=== PATIENT | male | born 1990 | race American Indian/Alaskan Native ===

== ENCOUNTER 2019-08-26 06:04 | Emergency (ER) | payer MEDICAID, OTHER ==
[2019-08-26 06:12] VITALS: BP 156/81
[2019-08-26] MEDS ORDERED: Albuterol/Ipratropium 3.0-0.5 MG/3 ML Neb Soln NEB ONE (06:15)
[2019-08-26] MEDS ORDERED: methylPREDNISolone Sodium Succinate 125 MG/2 ML SDV IVPUSH ONE (06:33)
[2019-08-26 06:38] VITALS: PULSE 90
--- NOTE | 2019-08-26 06:50 | EDM.PDOC ---
<Bridget Guerra - Last Filed: 08/26/19 06:47> ED HPI GENERAL MEDICAL PROBLEM - General Chief Complaint: Respiratory Problem Stated Complaint: SOB, COUGH FOR A FEW DAYS Time Seen by Provider: 08/26/19 06:10 Source of Information: Reports: Patient History Limitations: Reports: No Limitations - History of Present Illness INITIAL COMMENTS - FREE TEXT/NARRATIVE: ED with c/o productive cough, SOB and sore throat past 3 days. Denies asthma hx. Smoker. Some fever. Generalized Pain Score (Numeric/FACES): 5 - Related Data Allergies Allergy/AdvReac Type Severity Reaction Status Date / Time No Known Allergies Allergy Verified 08/26/19 06:13 Home Meds: Home Meds . [No Known Home Meds] 01/17/14 [History] Past Medical History - Past Health History Medical/Surgical History: Denies Medical/Surgical History Social & Family History - Family History Family Medical History: Noncontributory - Tobacco Use Smoking Status *Q: Current Every Day Smoker Years of Tobacco use: 8 Packs/Tins Daily: 0.5 - Caffeine Use Caffeine Use: Reports: Tea - Recreational Drug Use Recreational Drug Use: No ED ROS GENERAL - Review of Systems Review Of Systems: Comprehensive ROS is negative, except as noted in HPI. ED EXAM, GENERAL - Physical Exam Exam: See Below Exam Limited By: Language Barrier General Appearance: Alert, Mild Distress Eye Exam: Bilateral Eye: PERRL Ears: Normal External Exam, Hearing Grossly Normal Nose: Normal Inspection Throat/Mouth: Inflammation Head: Atraumatic, Normocephalic. No: Sinus Tenderness Neck: Normal Inspection Respiratory/Chest: Decreased Breath Sounds, Wheezing (bilateral throughout) Cardiovascular: Normal Peripheral Pulses, Regular Rate, Rhythm GI/Abdominal: Normal Bowel Sounds Back Exam: Normal Inspection Extremities: Normal Inspection Psychiatric: Flat Affect Skin Exam: Warm, Dry, Intact, Normal Color Course - Vital Signs Last Recorded V/S: Last Vital Signs Temp 37.8 C 08/26/19 06:06 Pulse 90 08/26/19 06:36 Resp 22 H 08/26/19 06:06 BP 156/81 H 08/26/19 06:06 Pulse Ox 90 L 08/26/19 06:19 - Orders/Labs/Meds Orders: Active Orders 24 hr Category Date Time Status RT Aerosol Therapy [RC] ASDIRECTED Care 08/26/19 06:15 Active CULTURE STREP A CONFIRMATION [RM] Stat Lab 08/26/19 06:10 Results STREP SCRN A RAPID W CULT CONF [RM] Stat Lab 08/26/19 06:10 Results Labs: Laboratory Tests 08/26/19 08/26/19 08/26/19 Range/Units 06:36 06:36 06:36 WBC 11.6 H (5.0-10.0) 10^3/uL RBC 5.22 (4.6-6.2) 10^6/uL Hgb 16.4 (14.0-18.0) g/dL Hct 47.1 (40.0-54.0) % MCV 90.2 (80-100) fL MCH 31.4 (27.0-34.0) pg MCHC 34.8 (33.0-35.0) g/dL Plt Count 176 (150-450) 10^3/uL Neut % (Auto) 56.5 (42.2-75.2) % Lymph % (Auto) 24.4 (20.5-50.1) % [place] % (Auto) 9.3 H (2-8) % Eos % (Auto) 9.4 H (1.0-3.0) % Baso % (Auto) 0.4 (0.0-1.0) % Sodium 138 (135-145) mmol/L Potassium 3.7 (3.6-5.0) mmol/L Chloride 105 (101-111) mmol/L Carbon Dioxide 22.0 (21.0-31.0) mmol/L Anion Gap 14.7 BUN 13 (7-18) mg/dL Creatinine 0.9 (0.6-1.3) mg/dL Est Cr Clr Drug Dosing 132.47 mL/min Estimated GFR (MDRD) > 60 BUN/Creatinine Ratio 14.44 Glucose 159 H (74-105) mg/dL Lactic Acid 1.4 (0.5-2.2) mmol/L Calcium 8.6 (8.4-10.2) mg/dl Total Bilirubin 1.0 (0.2-1.0) mg/dL AST 28 (10-42) IU/L ALT 31 (10-60) IU/L Alkaline Phosphatase 64 (42-121) IU/L Total Protein 8.2 (6.7-8.2) g/dl Albumin 4.1 (3.2-5.5) g/dl Globulin 4.1 Albumin/Globulin Ratio 1.00 Meds: Medications Discontinued Medications Generic Name Dose Route Start Last Admin Trade Name Vanessa PRN Reason Stop Dose Admin Albuterol/Ipratropium 3 ml 08/26/19 06:15 08/26/19 06:35 Duoneb 3.0-0.5 Mg/3 Ml NEB 08/26/19 06:16 3 ml ONETIME ONE Administration Ceftriaxone Sodium 1 gm/ 50 mls @ 50 mls/hr 08/26/19 07:53 08/26/19 08:11 Sodium Chloride IV 08/26/19 08:52 50 mls/hr ONETIME ONE Administration Methylprednisolone Sodium Succinate 125 mg 08/26/19 06:33 08/26/19 06:38 Solu-Medrol IVPUSH 08/26/19 06:34 125 mg ONETIME ONE Administration Departure - Departure Disposition: Home, Self-Care 01 Clinical Impression: Bronchitis - Discharge Information Instructions: Upper Respiratory Infection, Adult, [id number] Forms: ED Department Discharge Care Plan Goals: The patient was advised of the examination, lab and x-ray results during the visit. The patient was given an nebulizer treatment, IV steroids and IV antibiotics while in the ED. The patient was discharged with prescriptions for 1 ) Azithromycin (250 mg) #6 to take 2 by mouth today and 1 by mouth daily for for the next 4 days and 2) Prednisone (20 mg) #10 to take 2 by mouth daily ( starting tomorrow) with food. If the patient has any additional symptoms or concerns, the patient should either return to the emergency department or visit his primary care facility. Sepsis Event Note - Evaluation Sepsis Screening Result: No Definite Risk - Focused Exam Vital Signs: Vital Signs Temp Pulse Resp BP Pulse Ox 08/26/19 06:36 90 08/26/19 06:19 90 L 08/26/19 06:06 37.8 C 97 22 H 156/81 H 89 L Date Exam was Performed: 08/26/19 Time Exam was Performed: 06:47 <Haja Ríos - Last Filed: 08/26/19 09:20> Departure - Departure Time of Disposition: 09:14 Condition: Fair - Discharge Information *PRESCRIPTION DRUG MONITORING PROGRAM REVIEWED*: Not Applicable *COPY OF PRESCRIPTION DRUG MONITORING REPORT IN PATIENT NADIA: Not Applicable Sepsis Event Note - Focused Exam Date Exam was Performed: 08/26/19 Time Exam was Performed: 09:14
[2019-08-26 07:11] LABS: ANION GAP 14.7; CHLORIDE,CL 105 mmol/L (101-111); SODIUM,NA 138 mmol/L (135-145)
[2019-08-26] MEDS ORDERED: cefTRIAXone 1 GM in Sodium Chloride 0.9% 50 ML IV ONE (07:53)
== END 2019-08-26 09:30 | disposition home or self-care (01) ==
LOC: DL.ED 06:04
DX: J40 Bronchitis, not specified as acute or chronic (principal); F17.210 Nicotine dependence, cigarettes, uncomplicated
CPT/HCPCS: 36415; 71046; 80053; 83605; 85025; 87081; 87430; 87804; 96365; 96375; 99285; J0696; J2930; J7050; J7620-GY

== ENCOUNTER 2019-08-31 14:09 | Inpatient (IN) | payer MEDICAID, OTHER ==
[2019-08-31] MEDS ORDERED: methylPREDNISolone Sodium Succinate 125 MG/2 ML SDV IVPUSH ONE (14:50)
[2019-08-31] MEDS ORDERED: Albuterol/Ipratropium 3.0-0.5 MG/3 ML Neb Soln NEB ONE ×2 (14:50→17:01)
[2019-08-31] MEDS ORDERED: Albuterol/Ipratropium 3.0-0.5 MG/3 ML Neb Soln ONE (14:52)
[2019-08-31] MEDS: Sodium Chloride 0.9% 10 ML Syringe FLUSH PRN (15:05)
--- NOTE | 2019-08-31 15:13 | CR ---
EXAMINATION: Chest 2V SEX: Male AGE: 28 years CLINICAL HISTORY: 28-year-old male complaining of cough, dyspnea, hypoxia, fever. INTERPRETATION: 1. *Patchy new lingular atelectasis and/or developing infiltrate when compared to 26 August 2019 exam. 2. Peribronchial "cuffing" and shaggy accentuation perihilar lung markings. 3. Normal cardiac silhouette without alveolar edema or dependent effusion. 4. No lung mass, hilar lymphadenopathy or other focal lobar consolidation. CONCLUSION: Lingular pneumonia.
[2019-08-31] MEDS ORDERED: Albuterol 0.083% 2.5 MG/3 ML Neb Soln NEB ONE (15:18)
[2019-08-31] MEDS ORDERED: Albuterol 0.083% 2.5 MG/3 ML Neb Soln ONE (15:19)
[2019-08-31 15:40] LABS: ANION GAP 17.9; CHLORIDE,CL 102 mmol/L (101-111); SODIUM,NA 136 mmol/L (135-145)
[2019-08-31] MEDS ORDERED: Azithromycin 500 MG in Sodium Chloride 0.9% 250 ML IV ONE (15:44)
[2019-08-31 17:03] LABS: BASE EXCESS ARTERIAL -2 mmol/L ((-2)-(+3)); BICARBONATE,ARTERIAL 22.6 mmol/L (22-26); O2 DELIVERY DEVICE NASAL CANNULA; O2 SATURATION ARTERIAL 90 % (95-100); PCO2 ARTERIAL 40 mmHg (35-45); PO2 ARTERIAL 61 mmHg (70-100)
[2019-08-31 17:07] LABS: ALLEN TEST LB; O2 FLOW RATE 11
[2019-08-31] MEDS ORDERED: Albuterol 0.083% 2.5 MG/3 ML Neb Soln NEB PRN ×2 (17:42→18:06)
[2019-08-31] MEDS ORDERED: Ondansetron 4 MG/2 ML SDV IVPUSH PRN ×2 (17:42→18:06)
[2019-08-31] MEDS ORDERED: Acetaminophen 325 MG Tab PO PRN ×2 (17:42→18:06)
[2019-08-31] MEDS ORDERED: Albuterol/Ipratropium 3.0-0.5 MG/3 ML Neb Soln NEB SCH (17:45)
[2019-08-31] MEDS ORDERED: cefTRIAXone 2 GM in Sodium Chloride 0.9% 100 ML IV SCH (17:45)
[2019-08-31] MEDS ORDERED: Sodium Chloride 0.9% 1,000 ML IV SCH (17:45)
--- NOTE | 2019-08-31 17:47 | EDM.PDOC ---
Scribed by Alivia Coronado 08/31/19 1610 for Raul Nolasco MD ED HPI GENERAL MEDICAL PROBLEM - General Chief Complaint: Respiratory Problem Stated Complaint: cough Time Seen by Provider: 08/31/19 14:47 Source of Information: Reports: Patient, RN, RN Notes Reviewed History Limitations: Reports: No Limitations - History of Present Illness INITIAL COMMENTS - FREE TEXT/NARRATIVE: Patient presents to ER with shortness of breath, cough and fever x1 week. Patient was here on 08/26/19 and diagnosed with bronchitis but did not fill his prescriptions. He states he was better for 2 days but for the last 2 days he has been very short of breath. Denies history of asthma. Admits to 10 year history of smoking cigarettes. Onset Date: 08/24/19 Duration: Getting Worse Location: Reports: Chest Quality: Reports: Ache Severity: Moderate Improves with: Reports: None Worsens with: Reports: None Associated Symptoms: Reports: No Other Symptoms - Related Data Allergies Allergy/AdvReac Type Severity Reaction Status Date / Time No Known Allergies Allergy Verified 08/31/19 14:59 Home Meds: Home Meds . [No Known Home Meds] 01/17/14 [History] Past Medical History - Past Health History Medical/Surgical History: Denies Medical/Surgical History Social & Family History - Family History Family Medical History: Noncontributory - Caffeine Use Caffeine Use: Reports: Tea - Living Situation & Occupation Living situation: Reports: with Family ED ROS GENERAL - Review of Systems Review Of Systems: Comprehensive ROS is negative, except as noted in HPI. ED EXAM, GENERAL - Physical Exam Exam: See Below Exam Limited By: No Limitations General Appearance: Alert, WD/WN, Mild Distress Eye Exam: Bilateral Eye: EOMI, Normal Inspection, PERRL Ears: Normal External Exam, Normal Canal, Hearing Grossly Normal, Normal TMs Nose: No Blood, Nasal Drainage, Other (mild naal congestion) Throat/Mouth: Normal Inspection, Normal Lips, Normal Teeth, Normal Gums, Normal Oropharynx, Normal Voice, No Airway Compromise Head: Atraumatic, Normocephalic Neck: Normal Inspection, Supple, Non-Tender, Full Range of Motion. No: Lymphadenopathy (L), Lymphadenopathy (R) Respiratory/Chest: Chest Non-Tender, Decreased Breath Sounds, Crackles, Rhonchi (mild scattered bilateral bases, clears with cough. ), Wheezing. No: Stridor Cardiovascular: Regular Rate, Rhythm, No Edema, No Murmur, Tachycardia GI/Abdominal: Normal Bowel Sounds, Soft, Non-Tender, No Organomegaly, No Distention, No Abnormal Bruit, No Mass Back Exam: Normal Inspection Extremities: Normal Inspection, Normal Range of Motion, Non-Tender, Normal Capillary Refill, No Pedal Edema Neurological: Alert, Oriented, CN II-XII Intact, Normal Cognition, Normal Gait, No Motor/Sensory Deficits Psychiatric: Normal Affect, Anxious Skin Exam: Warm, Dry, Intact, Normal Color, No Rash Course - Vital Signs Last Recorded V/S: Last Vital Signs Temp 98 F 08/31/19 14:12 Pulse 118 H 08/31/19 17:14 Resp 20 08/31/19 14:12 BP 140/91 H 08/31/19 14:12 Pulse Ox 88 L 08/31/19 14:12 - Orders/Labs/Meds Orders: Active Orders 24 hr Category Date Time Status Admission Diagnosis [ADT] Routine ADT 08/31/19 17:42 Ordered Admission Status [Patient Status] [ADT] Routine ADT 08/31/19 17:42 Active Peripheral IV Care [RC] . DIRECTED Care 08/31/19 14:48 Active RT Aerosol Therapy [RC] ASDIRECTED Care 08/31/19 14:51 Active RT Aerosol Therapy [RC] ASDIRECTED Care 08/31/19 15:18 Active RT Aerosol Therapy [RC] ASDIRECTED Care 08/31/19 17:01 Active CULTURE BLOOD [BC] Stat Lab 08/31/19 15:00 Received CULTURE BLOOD [BC] Stat Lab 08/31/19 15:08 Received Sodium Chloride 0.9% [Saline Flush] Med 08/31/19 14:47 Active 10 ml FLUSH ASDIRECTED PRN Blood Culture x2 Reflex Set [OM.PC] Stat Oth 08/31/19 14:47 Ordered Peripheral IV Insertion Adult [OM.PC] Stat Oth 08/31/19 14:47 Ordered Medication Orders Sodium Chloride (Saline Flush) 10 ml FLUSH ASDIRECTED PRN PRN Reason: Keep Vein Open Last Admin: 08/31/19 15:05 Dose: 10 ml Labs: Laboratory Tests 08/31/19 08/31/19 08/31/19 Range/Units 14:54 14:54 15:00 WBC 16.0 H (5.0-10.0) 10^3/uL RBC 5.60 (4.6-6.2) 10^6/uL Hgb 17.7 (14.0-18.0) g/dL Hct 49.1 (40.0-54.0) % MCV 87.7 (80-100) fL MCH 31.6 (27.0-34.0) pg MCHC 36.0 H (33.0-35.0) g/dL Plt Count 206 (150-450) 10^3/uL Neut % (Auto) 72.1 (42.2-75.2) % Lymph % (Auto) 12.3 L (20.5-50.1) % [place] % (Auto) 7.9 (2-8) % Eos % (Auto) 7.5 H (1.0-3.0) % Baso % (Auto) 0.2 (0.0-1.0) % D-Dimer, Quantitative (0-400) ng/mL ABG pH (7.35-7.45) ABG pCO2 (35-45) mmHg ABG pO2 (70-100) mmHg ABG HCO3 (22-26) mmol/L ABG O2 Saturation (95-100) % ABG Base Excess ((-2)-(+3)) mmol/L Kenji Test O2 Delivery Device Oxygen Flow Rate Sodium (135-145) mmol/L Potassium (3.6-5.0) mmol/L Chloride (101-111) mmol/L Carbon Dioxide (21.0-31.0) mmol/L Anion Gap BUN (7-18) mg/dL Creatinine (0.6-1.3) mg/dL Est Cr Clr Drug Dosing mL/min Estimated GFR (MDRD) BUN/Creatinine Ratio Glucose (74-105) mg/dL Lactic Acid (0.5-2.0) mmol/L Calcium (8.4-10.2) mg/dl Total Bilirubin (0.2-1.0) mg/dL AST (10-42) IU/L ALT (10-60) IU/L Alkaline Phosphatase (42-121) IU/L Total Protein (6.7-8.2) g/dl Albumin (3.2-5.5) g/dl Globulin Albumin/Globulin Ratio Urine Color Yellow (YELLOW) Urine Appearance Clear (CLEAR) Urine pH 6.0 (5.0-9.0) Ur Specific [place] 1.015 (1.005-1.030) Urine Protein Negative (NEGATIVE) Urine Glucose (UA) Negative (NEGATIVE) Urine Ketones Negative (NEGATIVE) Urine Occult Blood Negative (NEGATIVE) Urine Nitrite Negative (NEGATIVE) Urine Bilirubin Negative (NEGATIVE) Urine Urobilinogen 0.2 (0.2-1.0) mg/dL Ur Leukocyte Esterase Negative (NEGATIVE) Urine Opiates Screen Negative (NEGATIVE) Ur Oxycodone Screen Negative (NEGATIVE) Urine Methadone Screen Negative (NEGATIVE) Ur Barbiturates Screen Negative (NEGATIVE) U Tricyclic Antidepress Negative (NEGATIVE) Ur Phencyclidine Scrn Negative (NEGATIVE) Ur Amphetamine Screen Negative (NEGATIVE) U Methamphetamines Scrn Negative (NEGATIVE) Urine MDMA Screen Negative (NEGATIVE) U Benzodiazepines Scrn Negative (NEGATIVE) Urine Cocaine Screen Negative (NEGATIVE) U Marijuana (THC) Screen Negative (NEGATIVE) 08/31/19 08/31/19 08/31/19 Range/Units 15:00 15:00 15:00 WBC (5.0-10.0) 10^3/uL RBC (4.6-6.2) 10^6/uL Hgb (14.0-18.0) g/dL Hct (40.0-54.0) % MCV (80-100) fL MCH (27.0-34.0) pg MCHC (33.0-35.0) g/dL Plt Count (150-450) 10^3/uL Neut % (Auto) (42.2-75.2) % Lymph % (Auto) (20.5-50.1) % [place] % (Auto) (2-8) % Eos % (Auto) (1.0-3.0) % Baso % (Auto) (0.0-1.0) % D-Dimer, Quantitative < 100 (0-400) ng/mL ABG pH (7.35-7.45) ABG pCO2 (35-45) mmHg ABG pO2 (70-100) mmHg ABG HCO3 (22-26) mmol/L ABG O2 Saturation (95-100) % ABG Base Excess ((-2)-(+3)) mmol/L Kenji Test O2 Delivery Device Oxygen Flow Rate Sodium 136 (135-145) mmol/L Potassium 3.9 (3.6-5.0) mmol/L Chloride 102 (101-111) mmol/L Carbon Dioxide 20.0 L (21.0-31.0) mmol/L Anion Gap 17.9 BUN 11 (7-18) mg/dL Creatinine 0.9 (0.6-1.3) mg/dL Est Cr Clr Drug Dosing 132.47 mL/min Estimated GFR (MDRD) > 60 BUN/Creatinine Ratio 12.22 Glucose 112 H (74-105) mg/dL Lactic Acid 1.2 (0.5-2.0) mmol/L Calcium 8.9 (8.4-10.2) mg/dl Total Bilirubin 1.6 H (0.2-1.0) mg/dL AST 37 (10-42) IU/L ALT 37 (10-60) IU/L Alkaline Phosphatase 62 (42-121) IU/L Total Protein 8.8 H (6.7-8.2) g/dl Albumin 4.4 (3.2-5.5) g/dl Globulin 4.4 Albumin/Globulin Ratio 1.00 Urine Color (YELLOW) Urine Appearance (CLEAR) Urine pH (5.0-9.0) Ur Specific [place] (1.005-1.030) Urine Protein (NEGATIVE) Urine Glucose (UA) (NEGATIVE) Urine Ketones (NEGATIVE) Urine Occult Blood (NEGATIVE) Urine Nitrite (NEGATIVE) Urine Bilirubin (NEGATIVE) Urine Urobilinogen (0.2-1.0) mg/dL Ur Leukocyte Esterase (NEGATIVE) Urine Opiates Screen (NEGATIVE) Ur Oxycodone Screen (NEGATIVE) Urine Methadone Screen (NEGATIVE) Ur Barbiturates Screen (NEGATIVE) U Tricyclic Antidepress (NEGATIVE) Ur Phencyclidine Scrn (NEGATIVE) Ur Amphetamine Screen (NEGATIVE) U Methamphetamines Scrn (NEGATIVE) Urine MDMA Screen (NEGATIVE) U Benzodiazepines Scrn (NEGATIVE) Urine Cocaine Screen (NEGATIVE) U Marijuana (THC) Screen (NEGATIVE) 08/31/19 Range/Units 17:00 WBC (5.0-10.0) 10^3/uL RBC (4.6-6.2) 10^6/uL Hgb (14.0-18.0) g/dL Hct (40.0-54.0) % MCV (80-100) fL MCH (27.0-34.0) pg MCHC (33.0-35.0) g/dL Plt Count (150-450) 10^3/uL Neut % (Auto) (42.2-75.2) % Lymph % (Auto) (20.5-50.1) % [place] % (Auto) (2-8) % Eos % (Auto) (1.0-3.0) % Baso % (Auto) (0.0-1.0) % D-Dimer, Quantitative (0-400) ng/mL ABG pH 7.37 (7.35-7.45) ABG pCO2 40 (35-45) mmHg ABG pO2 61 L (70-100) mmHg ABG HCO3 22.6 (22-26) mmol/L ABG O2 Saturation 90 L (95-100) % ABG Base Excess -2 ((-2)-(+3)) mmol/L Kenji Test Lb O2 Delivery Device Nasal cannula Oxygen Flow Rate 11 Sodium (135-145) mmol/L Potassium (3.6-5.0) mmol/L Chloride (101-111) mmol/L Carbon Dioxide (21.0-31.0) mmol/L Anion Gap BUN (7-18) mg/dL Creatinine (0.6-1.3) mg/dL Est Cr Clr Drug Dosing mL/min Estimated GFR (MDRD) BUN/Creatinine Ratio Glucose (74-105) mg/dL Lactic Acid (0.5-2.0) mmol/L Calcium (8.4-10.2) mg/dl Total Bilirubin (0.2-1.0) mg/dL AST (10-42) IU/L ALT (10-60) IU/L Alkaline Phosphatase (42-121) IU/L Total Protein (6.7-8.2) g/dl Albumin (3.2-5.5) g/dl Globulin Albumin/Globulin Ratio Urine Color (YELLOW) Urine Appearance (CLEAR) Urine pH (5.0-9.0) Ur Specific [place] (1.005-1.030) Urine Protein (NEGATIVE) Urine Glucose (UA) (NEGATIVE) Urine Ketones (NEGATIVE) Urine Occult Blood (NEGATIVE) Urine Nitrite (NEGATIVE) Urine Bilirubin (NEGATIVE) Urine Urobilinogen (0.2-1.0) mg/dL Ur Leukocyte Esterase (NEGATIVE) Urine Opiates Screen (NEGATIVE) Ur Oxycodone Screen (NEGATIVE) Urine Methadone Screen (NEGATIVE) Ur Barbiturates Screen (NEGATIVE) U Tricyclic Antidepress (NEGATIVE) Ur Phencyclidine Scrn (NEGATIVE) Ur Amphetamine Screen (NEGATIVE) U Methamphetamines Scrn (NEGATIVE) Urine MDMA Screen (NEGATIVE) U Benzodiazepines Scrn (NEGATIVE) Urine Cocaine Screen (NEGATIVE) U Marijuana (THC) Screen (NEGATIVE) Influenza A and B: Negative. Meds: Medications Generic Name Dose Route Start Last Admin Trade Name Freq PRN Reason Stop Dose Admin Sodium Chloride 10 ml 08/31/19 14:47 08/31/19 15:05 Saline Flush FLUSH 10 ml ASDIRECTED PRN Administration Keep Vein Open Discontinued Medications Generic Name Dose Route Start Last Admin Trade Name Freq PRN Reason Stop Dose Admin Albuterol 2.5 mg 08/31/19 15:18 08/31/19 15:23 Proventil Neb Soln NEB 08/31/19 15:19 2.5 mg ONETIME ONE Administration Albuterol Confirm 08/31/19 15:19 08/31/19 15:24 Proventil Neb Soln Administered 08/31/19 15:20 2.5 mg Dose Administration 2.5 mg .ROUTE .STK-MED ONE Albuterol/Ipratropium 3 ml 08/31/19 14:50 08/31/19 15:12 Duoneb 3.0-0.5 Mg/3 Ml NEB 08/31/19 14:51 3 ml ONETIME ONE Administration Albuterol/Ipratropium Confirm 08/31/19 14:52 08/31/19 15:10 Duoneb 3.0-0.5 Mg/3 Ml Administered 08/31/19 14:53 Not Given Dose 3 ml .ROUTE .STK-MED ONE Albuterol/Ipratropium 3 ml 08/31/19 17:01 08/31/19 17:14 Duoneb 3.0-0.5 Mg/3 Ml NEB 08/31/19 17:02 3 ml ONETIME ONE Administration Azithromycin 500 mg/ Sodium 250 mls @ 250 mls/hr 08/31/19 15:44 08/31/19 16: 32 Chloride IV 08/31/19 16:43 250 mls/hr ONETIME ONE Administration Ceftriaxone Sodium 2,000 mg/ 100 mls @ 200 mls/hr 08/31/19 15:43 08/31/19 16: 02 Sodium Chloride IV 08/31/19 16:12 200 mls/hr ONETIME ONE Administration Methylprednisolone Sodium Succinate 125 mg 08/31/19 14:50 08/31/19 15:05 Solu-Medrol IVPUSH 08/31/19 14:51 125 mg ONETIME ONE Administration - Radiology Interpretation Free Text/Narrative:: Chest x-ray: Lingular pneumonia. See rad report. Departure - Departure Time of Disposition: 16:09 (admitted to Dr. Gonsales) Disposition: Admitted As Inpatient 68 Condition: Fair Clinical Impression: Hypoxia Pneumonia Qualifiers: Pneumonia type: due to unspecified organism Laterality: left Lung location: unspecified part of lung Qualified Code(s): J18.9 - Pneumonia, unspecified organism Reactive airway disease with acute exacerbation Qualifiers: Asthma severity: severe Asthma persistence: persistent Qualified Code(s): J45.51 - Severe persistent asthma with (acute) exacerbation - Discharge Information *PRESCRIPTION DRUG MONITORING PROGRAM REVIEWED*: No *COPY OF PRESCRIPTION DRUG MONITORING REPORT IN PATIENT NADIA: No Forms: ED Department Discharge Sepsis Event Note - Focused Exam Vital Signs: Vital Signs Temp Pulse Resp BP Pulse Ox 08/31/19 17:14 118 H 08/31/19 15:12 105 H 08/31/19 14:12 98 F 111 H 20 140/91 H 88 L Date Exam was Performed: 08/31/19 Time Exam was Performed: 17:47 - My Orders Last 24 Hours: My Active Orders 08/31/19 14:47 Sodium Chloride 0.9% [Saline Flush] 10 ml FLUSH ASDIRECTED PRN Blood Culture x2 Reflex Set [OM.PC] Stat Peripheral IV Insertion Adult [OM.PC] Stat 08/31/19 14:48 Peripheral IV Care [RC] . DIRECTED 08/31/19 14:51 RT Aerosol Therapy [RC] ASDIRECTED 08/31/19 15:00 CULTURE BLOOD [BC] Stat 08/31/19 15:08 CULTURE BLOOD [BC] Stat 08/31/19 15:18 RT Aerosol Therapy [RC] ASDIRECTED 08/31/19 17:01 RT Aerosol Therapy [RC] ASDIRECTED 08/31/19 17:42 Admission Diagnosis [ADT] Routine Admission Status [Patient Status] [ADT] Routine - Assessment/Plan Last 24 Hours: My Active Orders 08/31/19 14:47 Sodium Chloride 0.9% [Saline Flush] 10 ml FLUSH ASDIRECTED PRN Blood Culture x2 Reflex Set [OM.PC] Stat Peripheral IV Insertion Adult [OM.PC] Stat 08/31/19 14:48 Peripheral IV Care [RC] . DIRECTED 08/31/19 14:51 RT Aerosol Therapy [RC] ASDIRECTED 08/31/19 15:00 CULTURE BLOOD [BC] Stat 08/31/19 15:08 CULTURE BLOOD [BC] Stat 08/31/19 15:18 RT Aerosol Therapy [RC] ASDIRECTED 08/31/19 17:01 RT Aerosol Therapy [RC] ASDIRECTED 08/31/19 17:42 Admission Diagnosis [ADT] Routine Admission Status [Patient Status] [ADT] Routine I have read and agree with the documentation that has been completed regarding this visit. By signing this record, I attest that the documentation was completed in my physical presence and is an accurate record of the encounter.
--- NOTE | 2019-08-31 17:52 | PCM.HP ---
H&P History of Present Illness - General Date of Service: 08/31/19 Admit Problem/Dx: Admission Diagnosis/Problem Admission Diagnosis/Problem Sepsis Source of Information: Patient - History of Present Illness Initial Comments - Free Text/Narative: The patient is a 28-year-old man with no significant past medical history. He started coughing about 5 days ago. Initially was mild but has gradually worsened over time. He was expectorating yellowish sputum. Also started having associated shortness of breath and wheezing. Symptoms has continued to worsen prompting him to come to the emergency room. In the emergency room patient was noted to be hypoxic with saturation in the 80s. Was placed on supplemental oxygen. Chest x-ray was obtained and he suggested left lower lobe infiltrate. He has had associated fever chills or rigors. Denies nausea vomiting or diarrhea. - Related Data Allergies/Adverse Reactions: Allergies Allergy/AdvReac Type Severity Reaction Status Date / Time No Known Allergies Allergy Verified 08/31/19 14:59 Home Medications: Home Meds . [No Known Home Meds] 01/17/14 [History] Past Medical History - Past Health History Medical/Surgical History: Denies Medical/Surgical History Social & Family History - Family History Family Medical History: Noncontributory - Tobacco Use Smoking Status *Q: Current Every Day Smoker Years of Tobacco use: 10 Packs/Tins Daily: 0.5 - Caffeine Use Caffeine Use: Reports: Tea - Recreational Drug Use Recreational Drug Use: No - Living Situation & Occupation Living situation: Reports: with Family H&P Review of Systems - Review of Systems: Review Of Systems: See Below General: Reports: Fever, Chills, Malaise, Weakness HEENT: Reports: Rhinitis Pulmonary: Reports: Shortness of Breath, Wheezing, Cough, Sputum Cardiovascular: Reports: No Symptoms Gastrointestinal: Reports: No Symptoms Genitourinary: Reports: No Symptoms Musculoskeletal: Reports: No Symptoms Skin: Reports: No Symptoms Psychiatric: Reports: No Symptoms Exam - Exam Exam: See Below - Vital Signs Vital Signs: Last Vital Signs Temp 36.6 C 08/31/19 14:12 Pulse 118 H 08/31/19 17:14 Resp 20 08/31/19 14:12 BP 140/91 H 08/31/19 14:12 Pulse Ox 88 L 08/31/19 14:12 Weight: 108.046 kg - Exam Quality Assessment: Supplemental Oxygen General: Alert, Oriented, Cooperative, Mild Distress Neck: Supple, Trachea Midline Lungs: Decreased Breath Sounds, Crackles, Rhonchi Cardiovascular: Regular Rate, Regular Rhythm GI/Abdominal Exam: Normal Bowel Sounds, Soft, Non-Tender, No Organomegaly, No Distention, No Abnormal Bruit, No Mass, Pelvis Stable Back Exam: Normal Inspection, Full Range of Motion, NT Extremities: Normal Inspection, Normal Range of Motion, Non-Tender, No Pedal Edema, Normal Capillary Refill - Patient Data Lab Results Last 24 hrs: Laboratory Results - last 24 hr 08/31/19 08/31/19 08/31/19 Range/Units 14:54 14:54 15:00 WBC 16.0 H (5.0-10.0) 10^3/uL RBC 5.60 (4.6-6.2) 10^6/uL Hgb 17.7 (14.0-18.0) g/dL Hct 49.1 (40.0-54.0) % MCV 87.7 (80-100) fL MCH 31.6 (27.0-34.0) pg MCHC 36.0 H (33.0-35.0) g/dL Plt Count 206 (150-450) 10^3/uL Neut % (Auto) 72.1 (42.2-75.2) % Lymph % (Auto) 12.3 L (20.5-50.1) % Citrus % (Auto) 7.9 (2-8) % Eos % (Auto) 7.5 H (1.0-3.0) % Baso % (Auto) 0.2 (0.0-1.0) % D-Dimer, Quantitative (0-400) ng/mL ABG pH (7.35-7.45) ABG pCO2 (35-45) mmHg ABG pO2 (70-100) mmHg ABG HCO3 (22-26) mmol/L ABG O2 Saturation (95-100) % ABG Base Excess ((-2)-(+3)) mmol/L Kenji Test O2 Delivery Device Oxygen Flow Rate Sodium (135-145) mmol/L Potassium (3.6-5.0) mmol/L Chloride (101-111) mmol/L Carbon Dioxide (21.0-31.0) mmol/L Anion Gap BUN (7-18) mg/dL Creatinine (0.6-1.3) mg/dL Est Cr Clr Drug Dosing mL/min Estimated GFR (MDRD) BUN/Creatinine Ratio Glucose (74-105) mg/dL Lactic Acid (0.5-2.0) mmol/L Calcium (8.4-10.2) mg/dl Total Bilirubin (0.2-1.0) mg/dL AST (10-42) IU/L ALT (10-60) IU/L Alkaline Phosphatase (42-121) IU/L Total Protein (6.7-8.2) g/dl Albumin (3.2-5.5) g/dl Globulin Albumin/Globulin Ratio Urine Color Yellow (YELLOW) Urine Appearance Clear (CLEAR) Urine pH 6.0 (5.0-9.0) Ur Specific [place] 1.015 (1.005-1.030) Urine Protein Negative (NEGATIVE) Urine Glucose (UA) Negative (NEGATIVE) Urine Ketones Negative (NEGATIVE) Urine Occult Blood Negative (NEGATIVE) Urine Nitrite Negative (NEGATIVE) Urine Bilirubin Negative (NEGATIVE) Urine Urobilinogen 0.2 (0.2-1.0) mg/dL Ur Leukocyte Esterase Negative (NEGATIVE) Urine Opiates Screen Negative (NEGATIVE) Ur Oxycodone Screen Negative (NEGATIVE) Urine Methadone Screen Negative (NEGATIVE) Ur Barbiturates Screen Negative (NEGATIVE) U Tricyclic Antidepress Negative (NEGATIVE) Ur Phencyclidine Scrn Negative (NEGATIVE) Ur Amphetamine Screen Negative (NEGATIVE) U Methamphetamines Scrn Negative (NEGATIVE) Urine MDMA Screen Negative (NEGATIVE) U Benzodiazepines Scrn Negative (NEGATIVE) Urine Cocaine Screen Negative (NEGATIVE) U Marijuana (THC) Screen Negative (NEGATIVE) 08/31/19 08/31/19 08/31/19 Range/Units 15:00 15:00 15:00 WBC (5.0-10.0) 10^3/uL RBC (4.6-6.2) 10^6/uL Hgb (14.0-18.0) g/dL Hct (40.0-54.0) % MCV (80-100) fL MCH (27.0-34.0) pg MCHC (33.0-35.0) g/dL Plt Count (150-450) 10^3/uL Neut % (Auto) (42.2-75.2) % Lymph % (Auto) (20.5-50.1) % Citrus % (Auto) (2-8) % Eos % (Auto) (1.0-3.0) % Baso % (Auto) (0.0-1.0) % D-Dimer, Quantitative < 100 (0-400) ng/mL ABG pH (7.35-7.45) ABG pCO2 (35-45) mmHg ABG pO2 (70-100) mmHg ABG HCO3 (22-26) mmol/L ABG O2 Saturation (95-100) % ABG Base Excess ((-2)-(+3)) mmol/L Kenji Test O2 Delivery Device Oxygen Flow Rate Sodium 136 (135-145) mmol/L Potassium 3.9 (3.6-5.0) mmol/L Chloride 102 (101-111) mmol/L Carbon Dioxide 20.0 L (21.0-31.0) mmol/L Anion Gap 17.9 BUN 11 (7-18) mg/dL Creatinine 0.9 (0.6-1.3) mg/dL Est Cr Clr Drug Dosing 132.47 mL/min Estimated GFR (MDRD) > 60 BUN/Creatinine Ratio 12.22 Glucose 112 H (74-105) mg/dL Lactic Acid 1.2 (0.5-2.0) mmol/L Calcium 8.9 (8.4-10.2) mg/dl Total Bilirubin 1.6 H (0.2-1.0) mg/dL AST 37 (10-42) IU/L ALT 37 (10-60) IU/L Alkaline Phosphatase 62 (42-121) IU/L Total Protein 8.8 H (6.7-8.2) g/dl Albumin 4.4 (3.2-5.5) g/dl Globulin 4.4 Albumin/Globulin Ratio 1.00 Urine Color (YELLOW) Urine Appearance (CLEAR) Urine pH (5.0-9.0) Ur Specific [place] (1.005-1.030) Urine Protein (NEGATIVE) Urine Glucose (UA) (NEGATIVE) Urine Ketones (NEGATIVE) Urine Occult Blood (NEGATIVE) Urine Nitrite (NEGATIVE) Urine Bilirubin (NEGATIVE) Urine Urobilinogen (0.2-1.0) mg/dL Ur Leukocyte Esterase (NEGATIVE) Urine Opiates Screen (NEGATIVE) Ur Oxycodone Screen (NEGATIVE) Urine Methadone Screen (NEGATIVE) Ur Barbiturates Screen (NEGATIVE) U Tricyclic Antidepress (NEGATIVE) Ur Phencyclidine Scrn (NEGATIVE) Ur Amphetamine Screen (NEGATIVE) U Methamphetamines Scrn (NEGATIVE) Urine MDMA Screen (NEGATIVE) U Benzodiazepines Scrn (NEGATIVE) Urine Cocaine Screen (NEGATIVE) U Marijuana (THC) Screen (NEGATIVE) 08/31/19 Range/Units 17:00 WBC (5.0-10.0) 10^3/uL RBC (4.6-6.2) 10^6/uL Hgb (14.0-18.0) g/dL Hct (40.0-54.0) % MCV (80-100) fL MCH (27.0-34.0) pg MCHC (33.0-35.0) g/dL Plt Count (150-450) 10^3/uL Neut % (Auto) (42.2-75.2) % Lymph % (Auto) (20.5-50.1) % Citrus % (Auto) (2-8) % Eos % (Auto) (1.0-3.0) % Baso % (Auto) (0.0-1.0) % D-Dimer, Quantitative (0-400) ng/mL ABG pH 7.37 (7.35-7.45) ABG pCO2 40 (35-45) mmHg ABG pO2 61 L (70-100) mmHg ABG HCO3 22.6 (22-26) mmol/L ABG O2 Saturation 90 L (95-100) % ABG Base Excess -2 ((-2)-(+3)) mmol/L Kenji Test Lb O2 Delivery Device Nasal cannula Oxygen Flow Rate 11 Sodium (135-145) mmol/L Potassium (3.6-5.0) mmol/L Chloride (101-111) mmol/L Carbon Dioxide (21.0-31.0) mmol/L Anion Gap BUN (7-18) mg/dL Creatinine (0.6-1.3) mg/dL Est Cr Clr Drug Dosing mL/min Estimated GFR (MDRD) BUN/Creatinine Ratio Glucose (74-105) mg/dL Lactic Acid (0.5-2.0) mmol/L Calcium (8.4-10.2) mg/dl Total Bilirubin (0.2-1.0) mg/dL AST (10-42) IU/L ALT (10-60) IU/L Alkaline Phosphatase (42-121) IU/L Total Protein (6.7-8.2) g/dl Albumin (3.2-5.5) g/dl Globulin Albumin/Globulin Ratio Urine Color (YELLOW) Urine Appearance (CLEAR) Urine pH (5.0-9.0) Ur Specific [place] (1.005-1.030) Urine Protein (NEGATIVE) Urine Glucose (UA) (NEGATIVE) Urine Ketones (NEGATIVE) Urine Occult Blood (NEGATIVE) Urine Nitrite (NEGATIVE) Urine Bilirubin (NEGATIVE) Urine Urobilinogen (0.2-1.0) mg/dL Ur Leukocyte Esterase (NEGATIVE) Urine Opiates Screen (NEGATIVE) Ur Oxycodone Screen (NEGATIVE) Urine Methadone Screen (NEGATIVE) Ur Barbiturates Screen (NEGATIVE) U Tricyclic Antidepress (NEGATIVE) Ur Phencyclidine Scrn (NEGATIVE) Ur Amphetamine Screen (NEGATIVE) U Methamphetamines Scrn (NEGATIVE) Urine MDMA Screen (NEGATIVE) U Benzodiazepines Scrn (NEGATIVE) Urine Cocaine Screen (NEGATIVE) U Marijuana (THC) Screen (NEGATIVE) Result Diagrams: 08/31/19 15:00 08/31/19 15:00 Héctor Results Last 24 hrs: Microbiology 08/31/19 14:36 Influenza Type A Antigen Screen - Final Nasal, Unspecified NEGATIVE INFLUENZA A VIRUS AG REFERENCE RANGE: NEGATIVE Influenza Type B Antigen Screen - Final NEGATIVE INFLUENZA B VIRUS AG REFERENCE RANGE: NEGATIVE Problem List Initiated/Reviewed/Updated: Yes Orders Last 24hrs: Active Orders 24 hr Category Date Time Status Admission Diagnosis [ADT] Routine ADT 08/31/19 17:42 Ordered Admission Status [Patient Status] [ADT] Routine ADT 08/31/19 17:42 Active Patient Status [ADT] Routine ADT 08/31/19 17:42 Ordered Cardiac Monitoring [RC] CONTINUOUS Care 08/31/19 17:43 Ordered Intake and Output [RC] QSHIFT Care 08/31/19 17:43 Ordered Oxygen Therapy [RC] PRN Care 08/31/19 17:42 Ordered Peripheral IV Care [RC] . DIRECTED Care 08/31/19 14:48 Active RT Aerosol Therapy [RC] ASDIRECTED Care 08/31/19 14:51 Active RT Aerosol Therapy [RC] ASDIRECTED Care 08/31/19 15:18 Active RT Aerosol Therapy [RC] ASDIRECTED Care 08/31/19 17:01 Active RT Aerosol Therapy [RC] ASDIRECTED Care 08/31/19 17:44 Ordered Up ad Xuan [RC] ASDIRECTED Care 08/31/19 17:42 Ordered VTE/DVT Education [RC] PER UNIT ROUTINE Care 08/31/19 17:42 Ordered Vital Signs [RC] Q4H Care 08/31/19 17:42 Ordered Regular Diet [DIET] Diet 08/31/19 Dinner Ordered BASIC METABOLIC PANEL,BMP [CHEM] AM Lab 09/01/19 05:11 Ordered CBC W/O DIFF,HEMOGRAM [HEME] AM Lab 09/01/19 05:11 Ordered CULTURE BLOOD [BC] Stat Lab 08/31/19 15:00 Received CULTURE BLOOD [BC] Stat Lab 08/31/19 15:08 Received CULTURE SPUTUM + SMEAR [RM] Stat Lab 08/31/19 17:42 Ordered HEPATIC FUNCTION PANEL,HFP [CHEM] Stat Lab 09/01/19 06:00 Ordered Acetaminophen [Tylenol] Med 08/31/19 17:42 Ordered 650 mg PO Q4H PRN Albuterol [Proventil Neb Soln] Med 08/31/19 17:42 Ordered 2.5 mg NEB Q2H PRN Albuterol/Ipratropium [DuoNeb 3.0-0.5 MG/3 ML] Med 08/31/19 17:45 Ordered 3 ml NEB Q4H Azithromycin [Zithromax] 500 mg Med 08/31/19 18:00 Ordered Sodium Chloride 0.9% [Normal Saline] 250 ml IV Q24H Enoxaparin [Lovenox] Med 09/01/19 09:00 Ordered 40 mg SUBCUT DAILY Ondansetron [Zofran] Med 08/31/19 17:42 Ordered 4 mg IVPUSH Q6H PRN Sodium Chloride 0.9% @ 125 MLS/HR (1000ml) Med 08/31/19 17:45 Ordered Sodium Chloride 0.9% [Normal Saline] 1,000 ml IV ASDIRECTED Sodium Chloride 0.9% [Saline Flush] Med 08/31/19 14:47 Active 10 ml FLUSH ASDIRECTED PRN cefTRIAXone [Rocephin] 2 gm Med 08/31/19 17:45 Ordered Sodium Chloride 0.9% [Normal Saline] 100 ml IV Q24H Blood Culture x2 Reflex Set [OM.PC] Stat Oth 08/31/19 14:47 Ordered Peripheral IV Insertion Adult [OM.PC] Stat Oth 08/31/19 14:47 Ordered Resuscitation Status Routine Resus Stat 08/31/19 17:42 Ordered Medication Orders Sodium Chloride (Saline Flush) 10 ml FLUSH ASDIRECTED PRN PRN Reason: Keep Vein Open Last Admin: 08/31/19 15:05 Dose: 10 ml Assessment/Plan Comment:: #. Acute hypoxemic respiratory failure This is secondary to pneumonia That may be a component of bronchospasm #. Community-acquired pneumonia Chest x-ray showed left lower lobe infiltrate Patient has been coughing #. Sepsis The patient is tachycardic and has leukocytosis white cell count of 16,000 #. Tobacco use disorder Patient smokes about half a pack of cigarettes a day #. Elevated bilirubin Likely due to sepsis Plan: Admit patient to medical floor Send sputum for Gram stain and cultures Blood cultures Empiric antibiotics with intravenous ceftriaxone 2 g every 24 hours Intravenous is his azithromycin Intravenous fluid Obtain repeat liver function test Nebulizer bronchodilators Counseling provided
[2019-08-31] MEDS ORDERED: Azithromycin 500 MG in Sodium Chloride 0.9% 250 ML IV SCH (18:00)
[2019-08-31] MEDS: Sodium Chloride 0.9% 1,000 ML IV SCH (20:21)
[2019-08-31] MEDS: Albuterol/Ipratropium 3.0-0.5 MG/3 ML Neb Soln NEB SCH ×2 (21:00→23:43)
[2019-09-01] MEDS: Albuterol/Ipratropium 3.0-0.5 MG/3 ML Neb Soln NEB SCH ×6 (03:06→23:09)
[2019-09-01] MEDS: Sodium Chloride 0.9% 1,000 ML IV SCH ×2 (04:28→13:59)
[2019-09-01 06:36] LABS: ANION GAP 13.2; CHLORIDE,CL 106 mmol/L (101-111); SODIUM,NA 138 mmol/L (135-145)
[2019-09-01] MEDS: Enoxaparin 40 MG/0.4 ML Syringe SUBCUT SCH (08:11)
[2019-09-01] MEDS ORDERED: Enoxaparin 40 MG/0.4 ML Syringe SUBCUT SCH (09:00)
--- NOTE | 2019-09-01 10:23 | PCM.PN ---
- General Info Date of Service: 09/01/19 Subjective Update: No new complaint today Patient is still coughing. Intensity is moderate. Has improved since admission. Continues to have some shortness of breath. Attempt to wean from oxygen has been unsuccessful. He is still on 5 L/m of oxygen. - Patient Data Vitals - Most Recent: Last Vital Signs Temp 37.4 C 09/01/19 07:47 Pulse 107 H 09/01/19 07:53 Resp 20 09/01/19 07:47 BP 124/59 L 09/01/19 07:47 Pulse Ox 98 09/01/19 07:47 Weight - Most Recent: 108.046 kg I&O - Last 24 Hours: Intake & Output 08/31/19 09/01/19 09/01/19 22:59 06:59 14:59 Intake Total 400 1015 Balance 400 1015 Lab Results Last 24 Hours: Laboratory Results - last 24 hr 08/31/19 08/31/19 08/31/19 Range/Units 14:54 14:54 15:00 WBC 16.0 H (5.0-10.0) 10^3/uL RBC 5.60 (4.6-6.2) 10^6/uL Hgb 17.7 (14.0-18.0) g/dL Hct 49.1 (40.0-54.0) % MCV 87.7 (80-100) fL MCH 31.6 (27.0-34.0) pg MCHC 36.0 H (33.0-35.0) g/dL Plt Count 206 (150-450) 10^3/uL Neut % (Auto) 72.1 (42.2-75.2) % Lymph % (Auto) 12.3 L (20.5-50.1) % [place] % (Auto) 7.9 (2-8) % Eos % (Auto) 7.5 H (1.0-3.0) % Baso % (Auto) 0.2 (0.0-1.0) % D-Dimer, Quantitative (0-400) ng/mL ABG pH (7.35-7.45) ABG pCO2 (35-45) mmHg ABG pO2 (70-100) mmHg ABG HCO3 (22-26) mmol/L ABG O2 Saturation (95-100) % ABG Base Excess ((-2)-(+3)) mmol/L Kenji Test O2 Delivery Device Oxygen Flow Rate Sodium (135-145) mmol/L Potassium (3.6-5.0) mmol/L Chloride (101-111) mmol/L Carbon Dioxide (21.0-31.0) mmol/L Anion Gap BUN (7-18) mg/dL Creatinine (0.6-1.3) mg/dL Est Cr Clr Drug Dosing mL/min Estimated GFR (MDRD) BUN/Creatinine Ratio Glucose (74-105) mg/dL Lactic Acid (0.5-2.0) mmol/L Calcium (8.4-10.2) mg/dl Total Bilirubin (0.2-1.0) mg/dL Direct Bilirubin (0.0-0.2) mg/dL Indirect Bilirubin AST (10-42) IU/L ALT (10-60) IU/L Alkaline Phosphatase (42-121) IU/L Total Protein (6.7-8.2) g/dl Albumin (3.2-5.5) g/dl Globulin Albumin/Globulin Ratio Urine Color Yellow (YELLOW) Urine Appearance Clear (CLEAR) Urine pH 6.0 (5.0-9.0) Ur Specific Bland 1.015 (1.005-1.030) Urine Protein Negative (NEGATIVE) Urine Glucose (UA) Negative (NEGATIVE) Urine Ketones Negative (NEGATIVE) Urine Occult Blood Negative (NEGATIVE) Urine Nitrite Negative (NEGATIVE) Urine Bilirubin Negative (NEGATIVE) Urine Urobilinogen 0.2 (0.2-1.0) mg/dL Ur Leukocyte Esterase Negative (NEGATIVE) Urine Opiates Screen Negative (NEGATIVE) Ur Oxycodone Screen Negative (NEGATIVE) Urine Methadone Screen Negative (NEGATIVE) Ur Barbiturates Screen Negative (NEGATIVE) U Tricyclic Antidepress Negative (NEGATIVE) Ur Phencyclidine Scrn Negative (NEGATIVE) Ur Amphetamine Screen Negative (NEGATIVE) U Methamphetamines Scrn Negative (NEGATIVE) Urine MDMA Screen Negative (NEGATIVE) U Benzodiazepines Scrn Negative (NEGATIVE) Urine Cocaine Screen Negative (NEGATIVE) U Marijuana (THC) Screen Negative (NEGATIVE) 08/31/19 08/31/19 08/31/19 Range/Units 15:00 15:00 15:00 WBC (5.0-10.0) 10^3/uL RBC (4.6-6.2) 10^6/uL Hgb (14.0-18.0) g/dL Hct (40.0-54.0) % MCV (80-100) fL MCH (27.0-34.0) pg MCHC (33.0-35.0) g/dL Plt Count (150-450) 10^3/uL Neut % (Auto) (42.2-75.2) % Lymph % (Auto) (20.5-50.1) % [place] % (Auto) (2-8) % Eos % (Auto) (1.0-3.0) % Baso % (Auto) (0.0-1.0) % D-Dimer, Quantitative < 100 (0-400) ng/mL ABG pH (7.35-7.45) ABG pCO2 (35-45) mmHg ABG pO2 (70-100) mmHg ABG HCO3 (22-26) mmol/L ABG O2 Saturation (95-100) % ABG Base Excess ((-2)-(+3)) mmol/L Kenji Test O2 Delivery Device Oxygen Flow Rate Sodium 136 (135-145) mmol/L Potassium 3.9 (3.6-5.0) mmol/L Chloride 102 (101-111) mmol/L Carbon Dioxide 20.0 L (21.0-31.0) mmol/L Anion Gap 17.9 BUN 11 (7-18) mg/dL Creatinine 0.9 (0.6-1.3) mg/dL Est Cr Clr Drug Dosing 132.47 mL/min Estimated GFR (MDRD) > 60 BUN/Creatinine Ratio 12.22 Glucose 112 H (74-105) mg/dL Lactic Acid 1.2 (0.5-2.0) mmol/L Calcium 8.9 (8.4-10.2) mg/dl Total Bilirubin 1.6 H (0.2-1.0) mg/dL Direct Bilirubin (0.0-0.2) mg/dL Indirect Bilirubin AST 37 (10-42) IU/L ALT 37 (10-60) IU/L Alkaline Phosphatase 62 (42-121) IU/L Total Protein 8.8 H (6.7-8.2) g/dl Albumin 4.4 (3.2-5.5) g/dl Globulin 4.4 Albumin/Globulin Ratio 1.00 Urine Color (YELLOW) Urine Appearance (CLEAR) Urine pH (5.0-9.0) Ur Specific Bland (1.005-1.030) Urine Protein (NEGATIVE) Urine Glucose (UA) (NEGATIVE) Urine Ketones (NEGATIVE) Urine Occult Blood (NEGATIVE) Urine Nitrite (NEGATIVE) Urine Bilirubin (NEGATIVE) Urine Urobilinogen (0.2-1.0) mg/dL Ur Leukocyte Esterase (NEGATIVE) Urine Opiates Screen (NEGATIVE) Ur Oxycodone Screen (NEGATIVE) Urine Methadone Screen (NEGATIVE) Ur Barbiturates Screen (NEGATIVE) U Tricyclic Antidepress (NEGATIVE) Ur Phencyclidine Scrn (NEGATIVE) Ur Amphetamine Screen (NEGATIVE) U Methamphetamines Scrn (NEGATIVE) Urine MDMA Screen (NEGATIVE) U Benzodiazepines Scrn (NEGATIVE) Urine Cocaine Screen (NEGATIVE) U Marijuana (THC) Screen (NEGATIVE) 08/31/19 09/01/19 09/01/19 Range/Units 17:00 05:55 05:55 WBC 9.1 (5.0-10.0) 10^3/uL RBC 4.80 (4.6-6.2) 10^6/uL Hgb 15.2 D (14.0-18.0) g/dL Hct 43.5 (40.0-54.0) % MCV 90.6 (80-100) fL MCH 31.7 (27.0-34.0) pg MCHC 34.9 (33.0-35.0) g/dL Plt Count 165 (150-450) 10^3/uL Neut % (Auto) (42.2-75.2) % Lymph % (Auto) (20.5-50.1) % [place] % (Auto) (2-8) % Eos % (Auto) (1.0-3.0) % Baso % (Auto) (0.0-1.0) % D-Dimer, Quantitative (0-400) ng/mL ABG pH 7.37 (7.35-7.45) ABG pCO2 40 (35-45) mmHg ABG pO2 61 L (70-100) mmHg ABG HCO3 22.6 (22-26) mmol/L ABG O2 Saturation 90 L (95-100) % ABG Base Excess -2 ((-2)-(+3)) mmol/L Kenji Test Lb O2 Delivery Device Nasal cannula Oxygen Flow Rate 11 Sodium 138 (135-145) mmol/L Potassium 4.2 (3.6-5.0) mmol/L Chloride 106 (101-111) mmol/L Carbon Dioxide 23.0 (21.0-31.0) mmol/L Anion Gap 13.2 BUN 11 (7-18) mg/dL Creatinine 0.9 (0.6-1.3) mg/dL Est Cr Clr Drug Dosing 132.47 mL/min Estimated GFR (MDRD) > 60 BUN/Creatinine Ratio Glucose 156 H (74-105) mg/dL Lactic Acid (0.5-2.0) mmol/L Calcium 8.6 (8.4-10.2) mg/dl Total Bilirubin (0.2-1.0) mg/dL Direct Bilirubin (0.0-0.2) mg/dL Indirect Bilirubin AST (10-42) IU/L ALT (10-60) IU/L Alkaline Phosphatase (42-121) IU/L Total Protein (6.7-8.2) g/dl Albumin (3.2-5.5) g/dl Globulin Albumin/Globulin Ratio Urine Color (YELLOW) Urine Appearance (CLEAR) Urine pH (5.0-9.0) Ur Specific Bland (1.005-1.030) Urine Protein (NEGATIVE) Urine Glucose (UA) (NEGATIVE) Urine Ketones (NEGATIVE) Urine Occult Blood (NEGATIVE) Urine Nitrite (NEGATIVE) Urine Bilirubin (NEGATIVE) Urine Urobilinogen (0.2-1.0) mg/dL Ur Leukocyte Esterase (NEGATIVE) Urine Opiates Screen (NEGATIVE) Ur Oxycodone Screen (NEGATIVE) Urine Methadone Screen (NEGATIVE) Ur Barbiturates Screen (NEGATIVE) U Tricyclic Antidepress (NEGATIVE) Ur Phencyclidine Scrn (NEGATIVE) Ur Amphetamine Screen (NEGATIVE) U Methamphetamines Scrn (NEGATIVE) Urine MDMA Screen (NEGATIVE) U Benzodiazepines Scrn (NEGATIVE) Urine Cocaine Screen (NEGATIVE) U Marijuana (THC) Screen (NEGATIVE) 09/01/19 Range/Units 05:55 WBC (5.0-10.0) 10^3/uL RBC (4.6-6.2) 10^6/uL Hgb (14.0-18.0) g/dL Hct (40.0-54.0) % MCV (80-100) fL MCH (27.0-34.0) pg MCHC (33.0-35.0) g/dL Plt Count (150-450) 10^3/uL Neut % (Auto) (42.2-75.2) % Lymph % (Auto) (20.5-50.1) % [place] % (Auto) (2-8) % Eos % (Auto) (1.0-3.0) % Baso % (Auto) (0.0-1.0) % D-Dimer, Quantitative (0-400) ng/mL ABG pH (7.35-7.45) ABG pCO2 (35-45) mmHg ABG pO2 (70-100) mmHg ABG HCO3 (22-26) mmol/L ABG O2 Saturation (95-100) % ABG Base Excess ((-2)-(+3)) mmol/L Kenji Test O2 Delivery Device Oxygen Flow Rate Sodium (135-145) mmol/L Potassium (3.6-5.0) mmol/L Chloride (101-111) mmol/L Carbon Dioxide (21.0-31.0) mmol/L Anion Gap BUN (7-18) mg/dL Creatinine (0.6-1.3) mg/dL Est Cr Clr Drug Dosing mL/min Estimated GFR (MDRD) BUN/Creatinine Ratio Glucose (74-105) mg/dL Lactic Acid (0.5-2.0) mmol/L Calcium (8.4-10.2) mg/dl Total Bilirubin 0.9 (0.2-1.0) mg/dL Direct Bilirubin 0.2 (0.0-0.2) mg/dL Indirect Bilirubin 0.7 AST 27 (10-42) IU/L ALT 30 (10-60) IU/L Alkaline Phosphatase 51 (42-121) IU/L Total Protein 7.5 (6.7-8.2) g/dl Albumin 3.6 (3.2-5.5) g/dl Globulin 3.9 Albumin/Globulin Ratio 0.92 Urine Color (YELLOW) Urine Appearance (CLEAR) Urine pH (5.0-9.0) Ur Specific Bland (1.005-1.030) Urine Protein (NEGATIVE) Urine Glucose (UA) (NEGATIVE) Urine Ketones (NEGATIVE) Urine Occult Blood (NEGATIVE) Urine Nitrite (NEGATIVE) Urine Bilirubin (NEGATIVE) Urine Urobilinogen (0.2-1.0) mg/dL Ur Leukocyte Esterase (NEGATIVE) Urine Opiates Screen (NEGATIVE) Ur Oxycodone Screen (NEGATIVE) Urine Methadone Screen (NEGATIVE) Ur Barbiturates Screen (NEGATIVE) U Tricyclic Antidepress (NEGATIVE) Ur Phencyclidine Scrn (NEGATIVE) Ur Amphetamine Screen (NEGATIVE) U Methamphetamines Scrn (NEGATIVE) Urine MDMA Screen (NEGATIVE) U Benzodiazepines Scrn (NEGATIVE) Urine Cocaine Screen (NEGATIVE) U Marijuana (THC) Screen (NEGATIVE) Héctor Results Last 24 Hours: Microbiology 09/01/19 03:20 Gram Stain - Final Sputum - Expectorated 08/31/19 15:00 Anaerobic Blood Culture - Final Blood - Venous 08/31/19 14:36 Influenza Type A Antigen Screen - Final Nasal, Unspecified NEGATIVE INFLUENZA A VIRUS AG REFERENCE RANGE: NEGATIVE Influenza Type B Antigen Screen - Final NEGATIVE INFLUENZA B VIRUS AG REFERENCE RANGE: NEGATIVE Med Orders - Current: Current Medications Acetaminophen (Tylenol) 650 mg PO Q4H PRN PRN Reason: Pain (Mild 1-3)/fever Albuterol (Proventil Neb Soln) 2.5 mg NEB Q2H PRN PRN Reason: shortness of breath/wheezing Albuterol/Ipratropium (Duoneb 3.0-0.5 Mg/3 Ml) 3 ml NEB Q4HRRT [facility] Last Admin: 09/01/19 07:52 Dose: 3 ml Enoxaparin Sodium (Lovenox) 40 mg SUBCUT DAILY [facility] Last Admin: 09/01/19 08:11 Dose: 40 mg Sodium Chloride (Normal Saline) 1,000 mls @ 125 mls/hr IV ASDIRECTED [facility] Last Admin: 09/01/19 04:28 Dose: 125 mls/hr Ceftriaxone Sodium 2 gm/ (Sodium Chloride) 100 mls @ 200 mls/hr IV Q24H [facility] Azithromycin 500 mg/ Sodium (Chloride) 250 mls @ 250 mls/hr IV Q24H [facility] Ondansetron HCl (Zofran) 4 mg IVPUSH Q6H PRN PRN Reason: Nausea/Vomiting Sodium Chloride (Saline Flush) 10 ml FLUSH ASDIRECTED PRN PRN Reason: Keep Vein Open Last Admin: 08/31/19 15:05 Dose: 10 ml Discontinued Medications Acetaminophen (Tylenol) 650 mg PO Q4H PRN PRN Reason: Pain (Mild 1-3)/fever Albuterol (Proventil Neb Soln) 2.5 mg NEB ONETIME ONE Stop: 08/31/19 15:19 Last Admin: 08/31/19 15:23 Dose: 2.5 mg Albuterol (Proventil Neb Soln) Confirm Administered Dose 2.5 mg .ROUTE .STK-MED ONE Stop: 08/31/19 15:20 Last Admin: 08/31/19 15:24 Dose: 2.5 mg Albuterol (Proventil Neb Soln) 2.5 mg NEB Q2H PRN PRN Reason: shortness of breath/wheezing Albuterol/Ipratropium (Duoneb 3.0-0.5 Mg/3 Ml) 3 ml NEB ONETIME ONE Stop: 08/31/19 14:51 Last Admin: 08/31/19 15:12 Dose: 3 ml Albuterol/Ipratropium (Duoneb 3.0-0.5 Mg/3 Ml) Confirm Administered Dose 3 ml .ROUTE .STK-MED ONE Stop: 08/31/19 14:53 Last Admin: 08/31/19 15:10 Dose: Not Given Albuterol/Ipratropium (Duoneb 3.0-0.5 Mg/3 Ml) 3 ml NEB ONETIME ONE Stop: 08/31/19 17:02 Last Admin: 08/31/19 17:14 Dose: 3 ml Albuterol/Ipratropium (Duoneb 3.0-0.5 Mg/3 Ml) 3 ml NEB Q4H [facility] Last Admin: 08/31/19 18:33 Dose: Not Given Enoxaparin Sodium (Lovenox) 40 mg SUBCUT DAILY [facility] Azithromycin 500 mg/ Sodium (Chloride) 250 mls @ 250 mls/hr IV ONETIME ONE Stop: 08/31/19 16:43 Last Admin: 08/31/19 16:32 Dose: 250 mls/hr Ceftriaxone Sodium 2,000 mg/ (Sodium Chloride) 100 mls @ 200 mls/hr IV ONETIME ONE Stop: 08/31/19 16:12 Last Admin: 08/31/19 16:02 Dose: 200 mls/hr Sodium Chloride (Normal Saline) 1,000 mls @ 125 mls/hr IV ASDIRECTED [facility] Ceftriaxone Sodium 2 gm/ (Sodium Chloride) 100 mls @ 200 mls/hr IV Q24H [facility] Last Admin: 08/31/19 18:33 Dose: Not Given Azithromycin 500 mg/ Sodium (Chloride) 250 mls @ 250 mls/hr IV Q24H [facility] Methylprednisolone Sodium Succinate (Solu-Medrol) 125 mg IVPUSH ONETIME ONE Stop: 08/31/19 14:51 Last Admin: 08/31/19 15:05 Dose: 125 mg Ondansetron HCl (Zofran) 4 mg IVPUSH Q6H PRN PRN Reason: Nausea/Vomiting - Exam Quality Assessment: Supplemental Oxygen General: Alert, Oriented, Cooperative HEENT: Pupils Equal, Pupils Reactive, EOMI, Mucous Membr. Moist/[place] Lungs: Rhonchi Cardiovascular: Regular Rate, Regular Rhythm Extremities: Normal Inspection, Normal Range of Motion, Non-Tender, No Pedal Edema, Normal Capillary Refill Sepsis Event Note - Evaluation Sepsis Screening Result: Sepsis Risk - Focused Exam Vital Signs: Vital Signs Temp Pulse Resp BP BP Pulse Ox 09/01/19 07:53 107 H 09/01/19 07:47 37.4 C 105 H 20 124/59 L 98 09/01/19 03:21 37.0 C 115 H 18 139/63 91 L 08/31/19 23:59 36.8 C 117 H 20 141/72 H 93 L Date Exam was Performed: 09/01/19 Time Exam was Performed: 10:20 - Problem List Review Problem List Initiated/Reviewed/Updated: Yes - My Orders Last 24 Hours: My Active Orders 08/31/19 17:42 Patient Status [ADT] Routine Oxygen Therapy [RC] .PRN Up ad Xuan [RC] ASDIRECTED VTE/DVT Education [RC] PER UNIT ROUTINE Vital Signs [RC] 00,04,08,12,16,20 Resuscitation Status Routine 08/31/19 17:43 Cardiac Monitoring [RC] 09,21 Intake and Output [RC] QSHIFT 08/31/19 18:00 Sodium Chloride 0.9% [Normal Saline] 1,000 ml IV ASDIRECTED 08/31/19 18:06 Acetaminophen [Tylenol] 650 mg PO Q4H PRN Albuterol [Proventil Neb Soln] 2.5 mg NEB Q2H PRN Ondansetron [Zofran] 4 mg IVPUSH Q6H PRN 08/31/19 19:00 Albuterol/Ipratropium [DuoNeb 3.0-0.5 MG/3 ML] 3 ml NEB Q4HRRT 08/31/19 Dinner Regular Diet [DIET] 09/01/19 03:20 CULTURE SPUTUM + SMEAR [RM] Stat 09/01/19 04:34 Flutter Valve Therapy [RT Chest Physiotherapy] [RC] ASDIRECTED RT Incentive Spirometry [RC] ASDIRECTED 09/01/19 09:00 Enoxaparin [Lovenox] 40 mg SUBCUT DAILY 09/01/19 15:00 cefTRIAXone [Rocephin] 2 gm Sodium Chloride 0.9% [Normal Saline] 100 ml IV Q24H 09/01/19 16:00 Azithromycin [Zithromax] 500 mg Sodium Chloride 0.9% [Normal Saline] 250 ml IV Q24H 09/02/19 09:05 Chest 2V [CR] Routine - Plan Plan:: #. Acute hypoxemic respiratory failure This is secondary to pneumonia That may be a component of bronchospasm #. Community-acquired pneumonia Chest x-ray showed left lower lobe infiltrate Patient has been coughing #. Sepsis The patient is tachycardic and had leukocytosis white cell count of 16,000 #. Tobacco use disorder Patient smokes about half a pack of cigarettes a day #. Elevated bilirubin Likely due to sepsis Resolved #. Acute bronchospasm Patient does have expiratory rhonchi bilaterally Plan: Patient is wheezing profusely Commence aggressive nebulization with DuoNeb every 4 hours Start patient on intravenous Solu Medrol 40 mg every 8 hours Continue antibiotics Incentive spirometry Tried to wean off oxygen as tolerated.
[2019-09-01] MEDS: methylPREDNISolone Sodium Succinate 40 MG/1 ML SDV IVPUSH SCH ×3 (12:03→21:56)
[2019-09-01] MEDS: Azithromycin 500 MG in Sodium Chloride 0.9% 250 ML IV SCH (15:49)
[2019-09-01] MEDS: cefTRIAXone 2 GM in Sodium Chloride 0.9% 100 ML IV SCH (15:52)
[2019-09-02] MEDS: Albuterol/Ipratropium 3.0-0.5 MG/3 ML Neb Soln NEB SCH ×5 (03:21→21:32)
[2019-09-02] MEDS: Sodium Chloride 0.9% 1,000 ML IV SCH (04:11)
[2019-09-02] MEDS: methylPREDNISolone Sodium Succinate 40 MG/1 ML SDV IVPUSH SCH (05:52)
[2019-09-02] MEDS: Enoxaparin 40 MG/0.4 ML Syringe SUBCUT SCH (09:12)
--- NOTE | 2019-09-02 10:01 | PCM.PN ---
- General Info Date of Service: 09/02/19 Subjective Update: The patient was admitted with community-acquired pneumonia leading to acute hypoxemic respiratory failure. Today, Of has no new complaint Still has some shortness of breath especially when he ambulates Also coughs intermittently He feels somewhat improved compared to yesterday Intermittently patient has been taking off his supplemental oxygen. - Review of Systems General: Reports: Weakness, Malaise Pulmonary: Reports: Shortness of Breath, Cough Cardiovascular: Reports: No Symptoms Gastrointestinal: Reports: No Symptoms - Patient Data Vitals - Most Recent: Last Vital Signs Temp 37.6 C 09/02/19 07:58 Pulse 105 H 09/02/19 07:58 Resp 20 09/02/19 07:58 BP 136/68 09/02/19 07:58 Pulse Ox 91 L 09/02/19 07:58 Weight - Most Recent: 108.046 kg I&O - Last 24 Hours: Intake & Output 09/01/19 09/02/19 09/02/19 22:59 06:59 14:59 Intake Total 240 Balance 240 Héctor Results Last 24 Hours: Microbiology 08/31/19 15:08 Aerobic Blood Culture - Preliminary Blood - Venous - Lab Draw NO GROWTH AFTER 1 DAY Anaerobic Blood Culture - Preliminary NO GROWTH AFTER 1 DAY 08/31/19 15:00 Aerobic Blood Culture - Preliminary Blood - Venous NO GROWTH AFTER 1 DAY Anaerobic Blood Culture - Final 09/01/19 03:20 Gram Stain - Final Sputum - Expectorated Med Orders - Current: Current Medications Acetaminophen (Tylenol) 650 mg PO Q4H PRN PRN Reason: Pain (Mild 1-3)/fever Albuterol (Proventil Neb Soln) 2.5 mg NEB Q2H PRN PRN Reason: shortness of breath/wheezing Albuterol/Ipratropium (Duoneb 3.0-0.5 Mg/3 Ml) 3 ml NEB Q4HRRT ON LICENSE OF [facility] Last Admin: 09/02/19 07:21 Dose: 3 ml Enoxaparin Sodium (Lovenox) 40 mg SUBCUT DAILY ON LICENSE OF [facility] Last Admin: 09/02/19 09:12 Dose: 40 mg Sodium Chloride (Normal Saline) 1,000 mls @ 75 mls/hr IV ASDIRECTED ON LICENSE OF [facility] Last Admin: 09/02/19 04:11 Dose: 75 mls/hr Ceftriaxone Sodium 2 gm/ (Sodium Chloride) 100 mls @ 200 mls/hr IV Q24H ON LICENSE OF [facility] Last Admin: 09/01/19 15:52 Dose: 200 mls/hr Azithromycin 500 mg/ Sodium (Chloride) 250 mls @ 250 mls/hr IV Q24H ON LICENSE OF [facility] Last Admin: 09/01/19 15:49 Dose: 250 mls/hr Ondansetron HCl (Zofran) 4 mg IVPUSH Q6H PRN PRN Reason: Nausea/Vomiting Prednisone (Prednisone) 40 mg PO WITHBREAKFAST ON LICENSE OF [facility] Sodium Chloride (Saline Flush) 10 ml FLUSH ASDIRECTED PRN PRN Reason: Keep Vein Open Last Admin: 08/31/19 15:05 Dose: 10 ml Discontinued Medications Acetaminophen (Tylenol) 650 mg PO Q4H PRN PRN Reason: Pain (Mild 1-3)/fever Albuterol (Proventil Neb Soln) 2.5 mg NEB ONETIME ONE Stop: 08/31/19 15:19 Last Admin: 08/31/19 15:23 Dose: 2.5 mg Albuterol (Proventil Neb Soln) Confirm Administered Dose 2.5 mg .ROUTE .STK-MED ONE Stop: 08/31/19 15:20 Last Admin: 08/31/19 15:24 Dose: 2.5 mg Albuterol (Proventil Neb Soln) 2.5 mg NEB Q2H PRN PRN Reason: shortness of breath/wheezing Albuterol/Ipratropium (Duoneb 3.0-0.5 Mg/3 Ml) 3 ml NEB ONETIME ONE Stop: 08/31/19 14:51 Last Admin: 08/31/19 15:12 Dose: 3 ml Albuterol/Ipratropium (Duoneb 3.0-0.5 Mg/3 Ml) Confirm Administered Dose 3 ml .ROUTE .STK-MED ONE Stop: 08/31/19 14:53 Last Admin: 08/31/19 15:10 Dose: Not Given Albuterol/Ipratropium (Duoneb 3.0-0.5 Mg/3 Ml) 3 ml NEB ONETIME ONE Stop: 08/31/19 17:02 Last Admin: 08/31/19 17:14 Dose: 3 ml Albuterol/Ipratropium (Duoneb 3.0-0.5 Mg/3 Ml) 3 ml NEB Q4H ON LICENSE OF [facility] Last Admin: 08/31/19 18:33 Dose: Not Given Enoxaparin Sodium (Lovenox) 40 mg SUBCUT DAILY ON LICENSE OF [facility] Azithromycin 500 mg/ Sodium (Chloride) 250 mls @ 250 mls/hr IV ONETIME ONE Stop: 08/31/19 16:43 Last Admin: 08/31/19 16:32 Dose: 250 mls/hr Ceftriaxone Sodium 2,000 mg/ (Sodium Chloride) 100 mls @ 200 mls/hr IV ONETIME ONE Stop: 08/31/19 16:12 Last Admin: 08/31/19 16:02 Dose: 200 mls/hr Sodium Chloride (Normal Saline) 1,000 mls @ 125 mls/hr IV ASDIRECTED ON LICENSE OF [facility] Ceftriaxone Sodium 2 gm/ (Sodium Chloride) 100 mls @ 200 mls/hr IV Q24H ON LICENSE OF [facility] Last Admin: 08/31/19 18:33 Dose: Not Given Azithromycin 500 mg/ Sodium (Chloride) 250 mls @ 250 mls/hr IV Q24H ON LICENSE OF [facility] Methylprednisolone Sodium Succinate (Solu-Medrol) 125 mg IVPUSH ONETIME ONE Stop: 08/31/19 14:51 Last Admin: 08/31/19 15:05 Dose: 125 mg Methylprednisolone Sodium Succinate (Solu-Medrol) 40 mg IVPUSH Q8HR ON LICENSE OF [facility] Last Admin: 09/02/19 05:52 Dose: 40 mg Ondansetron HCl (Zofran) 4 mg IVPUSH Q6H PRN PRN Reason: Nausea/Vomiting Prednisone (Prednisone) 40 mg PO WITHBREAKFAST BRIANA - Exam General: Alert, Oriented, Cooperative Neck: Supple, Trachea Midline Lungs: Decreased Breath Sounds Cardiovascular: Regular Rate, Regular Rhythm Extremities: Normal Inspection, Normal Range of Motion, Non-Tender, No Pedal Edema, Normal Capillary Refill Sepsis Event Note - Evaluation Sepsis Screening Result: Sepsis Risk - Focused Exam Vital Signs: Vital Signs Temp Pulse Resp BP BP Pulse Ox 09/02/19 07:58 37.6 C 105 H 20 136/68 91 L 09/02/19 07:21 99 09/02/19 04:00 37.7 C 130 H 20 141/52 H 94 L 09/02/19 00:00 37.2 C 118 H 20 140/55 L 94 L Date Exam was Performed: 09/02/19 Time Exam was Performed: 09:58 - Problem List Review Problem List Initiated/Reviewed/Updated: Yes - My Orders Last 24 Hours: My Active Orders 09/01/19 09:00 Enoxaparin [Lovenox] 40 mg SUBCUT DAILY 09/01/19 11:01 Flutter Valve Therapy [RT Chest Physiotherapy] [RC] ASDIRECTED RT Incentive Spirometry [RC] Q2HWA 09/01/19 15:00 cefTRIAXone [Rocephin] 2 gm Sodium Chloride 0.9% [Normal Saline] 100 ml IV Q24H 09/01/19 16:00 Azithromycin [Zithromax] 500 mg Sodium Chloride 0.9% [Normal Saline] 250 ml IV Q24H 09/02/19 09:05 Chest 2V [CR] Routine 09/02/19 09:57 predniSONE 40 mg PO WITHBREAKFAST - Plan Plan:: #. Acute hypoxemic respiratory failure This is secondary to pneumonia #. Community-acquired pneumonia Chest x-ray showed left lower lobe infiltrate Patient has been coughing #. Sepsis The patient is tachycardic and had leukocytosis white cell count of 16,000 #. Tobacco use disorder Patient smokes about half a pack of cigarettes a day #. Elevated bilirubin Likely due to sepsis Resolved #. Acute bronchospasm Patient did have expiratory rhonchi bilaterally Steroids are helping Plan: Wean off oxygen Discontinue Solu Medrol Start patient on prednisone 40 mg daily Start patient on nicotine patch for tobacco cessation Change DuoNeb to 4 times a day
[2019-09-02] MEDS: predniSONE 20 MG Tab PO SCH (11:21)
[2019-09-02] MEDS: Nicotine 21 MG/24 Hr Patch TRDERM SCH (11:22)
--- NOTE | 2019-09-02 13:28 | CR ---
EXAMINATION: Chest 2V SEX: Male AGE: 28 years CLINICAL HISTORY: 28-year-old male with increased shortness of breath. "Lingular pneumonia" reported on 31 August 2019 exam. INTERPRETATION: Abnormal. 1. Increased volume lingular consolidation. 2. Generally poor inspiratory effort with patchy new platelike midlung atelectasis bilaterally. 3. Normal cardiac silhouette. No pulmonary vascular congestion, cephalization of flow, alveolar edema or dependent pleural fluid accumulation. 4. Aniceto thorax unremarkable except for old healed fracture deformity right clavicle. CONCLUSION: Bilateral atelectasis and increased lingular infiltrate/atelectasis new since 31 August 2019 exam.
[2019-09-02] MEDS: cefTRIAXone 2 GM in Sodium Chloride 0.9% 100 ML IV SCH (14:26)
[2019-09-02] MEDS: Sodium Chloride 0.9% 10 ML Syringe FLUSH PRN ×2 (14:27→15:03)
[2019-09-02] MEDS: Azithromycin 500 MG in Sodium Chloride 0.9% 250 ML IV SCH (15:03)
[2019-09-03] MEDS: Albuterol/Ipratropium 3.0-0.5 MG/3 ML Neb Soln NEB SCH ×4 (07:11→20:58)
[2019-09-03] MEDS ORDERED: predniSONE 20 MG Tab PO SCH (08:00)
[2019-09-03] MEDS: predniSONE 20 MG Tab PO SCH (08:31)
[2019-09-03] MEDS: Nicotine 21 MG/24 Hr Patch TRDERM SCH (08:31)
[2019-09-03] MEDS: Enoxaparin 40 MG/0.4 ML Syringe SUBCUT SCH (08:32)
[2019-09-03] MEDS: Sodium Chloride 0.9% 10 ML Syringe FLUSH PRN ×2 (08:32→14:53)
--- NOTE | 2019-09-03 10:33 | PCM.PN ---
- General Info Date of Service: 09/03/19 Admission Dx/Problem (Free Text): Admission Diagnosis/Problem Admission Diagnosis/Problem Sepsis Subjective Update: The patient was admitted with community-acquired pneumonia leading to acute hypoxemic respiratory failure. Today, feeling better, still has cough, non productive Still has some shortness of breath especially when he ambulates off his supplemental oxygen. Functional Status: Reports: Pain Controlled, Tolerating Diet - Review of Systems General: Denies: Fever Pulmonary: Reports: Shortness of Breath Cardiovascular: Denies: Chest Pain Gastrointestinal: Denies: Abdominal Pain Genitourinary: Denies: Dysuria - Patient Data Vitals - Most Recent: Last Vital Signs Temp 36.9 C 09/03/19 07:52 Pulse 79 09/03/19 07:52 Resp 20 09/03/19 07:52 BP 144/79 H 09/03/19 07:52 Pulse Ox 97 09/03/19 07:52 Weight - Most Recent: 108.046 kg I&O - Last 24 Hours: Intake & Output 09/02/19 09/03/19 09/03/19 22:59 06:59 14:59 Intake Total 846 300 Balance 846 300 Héctor Results Last 24 Hours: Microbiology 09/01/19 03:20 Gram Stain - Final Sputum - Expectorated Sputum Culture - Preliminary 08/31/19 15:08 Aerobic Blood Culture - Preliminary Blood - Venous - Lab Draw NO GROWTH AFTER 2 DAYS Anaerobic Blood Culture - Preliminary NO GROWTH AFTER 2 DAYS 08/31/19 15:00 Aerobic Blood Culture - Preliminary Blood - Venous NO GROWTH AFTER 2 DAYS Anaerobic Blood Culture - Final Med Orders - Current: Current Medications Acetaminophen (Tylenol) 650 mg PO Q4H PRN PRN Reason: Pain (Mild 1-3)/fever Albuterol (Proventil Neb Soln) 2.5 mg NEB Q2H PRN PRN Reason: shortness of breath/wheezing Albuterol/Ipratropium (Duoneb 3.0-0.5 Mg/3 Ml) 3 ml NEB QIDRT [facility] Last Admin: 09/03/19 07:11 Dose: 3 ml Enoxaparin Sodium (Lovenox) 40 mg SUBCUT DAILY [facility] Last Admin: 09/03/19 08:32 Dose: 40 mg Ceftriaxone Sodium 2 gm/ (Sodium Chloride) 100 mls @ 200 mls/hr IV Q24H [facility] Last Infusion: 09/02/19 15:02 Dose: Infused Azithromycin 500 mg/ Sodium (Chloride) 250 mls @ 250 mls/hr IV Q24H [facility] Last Infusion: 09/02/19 16:26 Dose: Infused Nicotine (Habitrol) 21 mg TRDERM DAILY [facility] Last Admin: 09/03/19 08:31 Dose: 21 mg Ondansetron HCl (Zofran) 4 mg IVPUSH Q6H PRN PRN Reason: Nausea/Vomiting Prednisone (Prednisone) 40 mg PO WITHBREAKFAST [facility] Last Admin: 09/03/19 08:31 Dose: 40 mg Sodium Chloride (Saline Flush) 10 ml FLUSH ASDIRECTED PRN PRN Reason: Keep Vein Open Last Admin: 09/03/19 08:32 Dose: 10 ml Discontinued Medications Acetaminophen (Tylenol) 650 mg PO Q4H PRN PRN Reason: Pain (Mild 1-3)/fever Albuterol (Proventil Neb Soln) 2.5 mg NEB ONETIME ONE Stop: 08/31/19 15:19 Last Admin: 08/31/19 15:23 Dose: 2.5 mg Albuterol (Proventil Neb Soln) Confirm Administered Dose 2.5 mg .ROUTE .STK-MED ONE Stop: 08/31/19 15:20 Last Admin: 08/31/19 15:24 Dose: 2.5 mg Albuterol (Proventil Neb Soln) 2.5 mg NEB Q2H PRN PRN Reason: shortness of breath/wheezing Albuterol/Ipratropium (Duoneb 3.0-0.5 Mg/3 Ml) 3 ml NEB ONETIME ONE Stop: 08/31/19 14:51 Last Admin: 08/31/19 15:12 Dose: 3 ml Albuterol/Ipratropium (Duoneb 3.0-0.5 Mg/3 Ml) Confirm Administered Dose 3 ml .ROUTE .STK-MED ONE Stop: 08/31/19 14:53 Last Admin: 08/31/19 15:10 Dose: Not Given Albuterol/Ipratropium (Duoneb 3.0-0.5 Mg/3 Ml) 3 ml NEB ONETIME ONE Stop: 08/31/19 17:02 Last Admin: 08/31/19 17:14 Dose: 3 ml Albuterol/Ipratropium (Duoneb 3.0-0.5 Mg/3 Ml) 3 ml NEB Q4H [facility] Last Admin: 08/31/19 18:33 Dose: Not Given Albuterol/Ipratropium (Duoneb 3.0-0.5 Mg/3 Ml) 3 ml NEB Q4HRRT [facility] Last Admin: 09/02/19 07:21 Dose: 3 ml Enoxaparin Sodium (Lovenox) 40 mg SUBCUT DAILY [facility] Azithromycin 500 mg/ Sodium (Chloride) 250 mls @ 250 mls/hr IV ONETIME ONE Stop: 08/31/19 16:43 Last Admin: 08/31/19 16:32 Dose: 250 mls/hr Ceftriaxone Sodium 2,000 mg/ (Sodium Chloride) 100 mls @ 200 mls/hr IV ONETIME ONE Stop: 08/31/19 16:12 Last Admin: 08/31/19 16:02 Dose: 200 mls/hr Sodium Chloride (Normal Saline) 1,000 mls @ 125 mls/hr IV ASDIRECTED [facility] Ceftriaxone Sodium 2 gm/ (Sodium Chloride) 100 mls @ 200 mls/hr IV Q24H [facility] Last Admin: 08/31/19 18:33 Dose: Not Given Azithromycin 500 mg/ Sodium (Chloride) 250 mls @ 250 mls/hr IV Q24H [facility] Sodium Chloride (Normal Saline) 1,000 mls @ 75 mls/hr IV ASDIRECTED [facility] Last Infusion: 09/02/19 09:19 Dose: Infused Methylprednisolone Sodium Succinate (Solu-Medrol) 125 mg IVPUSH ONETIME ONE Stop: 08/31/19 14:51 Last Admin: 08/31/19 15:05 Dose: 125 mg Methylprednisolone Sodium Succinate (Solu-Medrol) 40 mg IVPUSH Q8HR [facility] Last Admin: 09/02/19 05:52 Dose: 40 mg Ondansetron HCl (Zofran) 4 mg IVPUSH Q6H PRN PRN Reason: Nausea/Vomiting Prednisone (Prednisone) 40 mg PO WITHBREAKFAST [facility] - Exam General: Alert, Oriented Neck: Supple Lungs: Normal Respiratory Effort, Wheezing (mild) Cardiovascular: Regular Rate, Regular Rhythm GI/Abdominal Exam: Normal Bowel Sounds, Soft, Non-Tender Extremities: No Pedal Edema Sepsis Event Note - Evaluation Sepsis Screening Result: No Definite Risk - Focused Exam Vital Signs: Vital Signs Temp Pulse Resp BP Pulse Ox Pulse Ox 09/03/19 07:52 36.9 C 79 20 144/79 H 97 09/03/19 07:12 89 97 09/03/19 03:37 37.1 C 93 20 134/80 97 09/02/19 23:28 37.2 C 101 H 20 142/77 H 95 Date Exam was Performed: 09/03/19 Time Exam was Performed: 10:33 - Problem List Review Problem List Initiated/Reviewed/Updated: Yes - My Orders Last 24 Hours: My Active Orders 09/04/19 05:15 BASIC METABOLIC PANEL,BMP [CHEM] AM CBC WITH AUTO DIFF [HEME] AM - Plan Plan:: #. Acute hypoxemic respiratory failure This is secondary to pneumonia improving off oxygen #. Community-acquired pneumonia Chest x-ray showed left lower lobe infiltrate Patient has been coughing sputum cx: pending tx. with azithro, rocephin #. Sepsis POA The patient is tachycardic and had leukocytosis white cell count of 16,000 resolved #. Tobacco use disorder Patient smokes about half a pack of cigarettes a day #. Elevated bilirubin Likely due to sepsis Resolved #. Acute bronchospasm expiratory rhonchi bilaterally Steroids are helping taper prednisone cont nebs d/w dr. Gonsales
[2019-09-03] MEDS: cefTRIAXone 2 GM in Sodium Chloride 0.9% 100 ML IV SCH (14:53)
[2019-09-03] MEDS: Azithromycin 500 MG in Sodium Chloride 0.9% 250 ML IV SCH (15:29)
[2019-09-04 07:08] LABS: ANION GAP 10.6; CHLORIDE,CL 108 mmol/L (101-111); SODIUM,NA 139 mmol/L (135-145)
[2019-09-04] MEDS: Albuterol/Ipratropium 3.0-0.5 MG/3 ML Neb Soln NEB SCH (07:09)
[2019-09-04 07:53] VITALS: BP 150/79; PULSE 100
[2019-09-04] MEDS: predniSONE 20 MG Tab PO SCH (09:24)
[2019-09-04] MEDS: Enoxaparin 40 MG/0.4 ML Syringe SUBCUT SCH (09:24)
[2019-09-04] MEDS: Nicotine 21 MG/24 Hr Patch TRDERM SCH (09:24)
--- NOTE | 2019-09-04 10:07 | PCM.DCSUM1 ---
Discharge Summary - Hospital Course Free Text/Narrative:: presented with fever, cough, sob, #. Acute hypoxemic respiratory failure This is secondary to pneumonia resolved off oxygen #. Community-acquired pneumonia Chest x-ray showed left lower lobe infiltrate Patient has been coughing tx. with azithro, rocephin will finish Augmentin #. Sepsis POA The patient is tachycardic and had leukocytosis white cell count of 16,000 resolved #. Tobacco use disorder Patient smokes about half a pack of cigarettes a day cessation advice discussed #. Elevated bilirubin Likely due to sepsis Resolved #. Acute bronchospasm expiratory rhonchi bilaterally Steroids are helping taper prednisone cont albuterol prn #. Elevated BSs 150s likely due to steroids follow periodically as out pt Diagnosis: Stroke: No - Discharge Data Discharge Date: 09/04/19 Discharge Disposition: Home, Self-Care 01 Condition: Good - Referral to Home Health Primary Care Physician: PCP Unobtainable - Patient Instructions Diet: Heart Healthy Diet Activity: As Tolerated - Discharge Plan *PRESCRIPTION DRUG MONITORING PROGRAM REVIEWED*: No *COPY OF PRESCRIPTION DRUG MONITORING REPORT IN PATIENT NADIA: No Prescriptions/Med Rec: Albuterol [Ventolin HFA] 2 puff INH .Q6H PRN #1 inhaler PRN Reason: sob Amoxicillin/Potassium Clav [Augmentin 500-125 Tablet] 1 each PO TID 5 Days #15 tablet predniSONE 20 mg PO WITHBREAKFAST 3 Days #3 tablet Home Medications: Home Meds Albuterol [Ventolin HFA] 2 puff INH .Q6H PRN #1 inhaler 09/04/19 [Rx] Amoxicillin/Potassium Clav [Augmentin 500-125 Tablet] 1 each PO TID 5 Days #15 tablet 09/04/19 [Rx] predniSONE 20 mg PO WITHBREAKFAST 3 Days #3 tablet 09/04/19 [Rx] Oxygen Therapy Mode: Room Air Patient Handouts: Amoxicillin; Clavulanic Acid tablets, Albuterol inhalation aerosol, Prednisone tablets, Community-Acquired Pneumonia, Adult, [id number] Referrals: Provider,Unknown [Ordering Only Provider] - ([facility] in 2-3 days) - Discharge Summary/Plan Comment DC Time >30 min.: No - General Info Date of Service: 09/04/19 Functional Status: Reports: Tolerating Diet, Ambulating - Review of Systems General: Denies: Fever, Weakness Pulmonary: Denies: Shortness of Breath Cardiovascular: Denies: Chest Pain Genitourinary: Denies: Dysuria Neurological: Denies: Confusion - Patient Data Vitals - Most Recent: Last Vital Signs Temp 36.8 C 09/04/19 07:15 Pulse 100 09/04/19 07:15 Resp 18 09/04/19 07:15 BP 150/79 H 09/04/19 07:15 Pulse Ox 95 09/04/19 07:15 Weight - Most Recent: 108.046 kg I&O - Last 24 hours: Intake & Output 09/03/19 09/04/19 09/04/19 22:59 06:59 14:59 Intake Total 540 360 Balance 540 360 Lab Results - Last 24 hrs: Laboratory Results - last 24 hr 09/04/19 09/04/19 Range/Units 06:15 06:15 WBC 9.0 (5.0-10.0) 10^3/uL RBC 4.77 (4.6-6.2) 10^6/uL Hgb 15.1 (14.0-18.0) g/dL Hct 43.3 (40.0-54.0) % MCV 90.8 (80-100) fL MCH 31.7 (27.0-34.0) pg MCHC 34.9 (33.0-35.0) g/dL Plt Count 169 (150-450) 10^3/uL Neut % (Auto) 54.7 (42.2-75.2) % Lymph % (Auto) 35.5 (20.5-50.1) % [place] % (Auto) 8.8 H (2-8) % Eos % (Auto) 1.0 (1.0-3.0) % Baso % (Auto) 0.0 (0.0-1.0) % Sodium 139 (135-145) mmol/L Potassium 3.6 (3.6-5.0) mmol/L Chloride 108 (101-111) mmol/L Carbon Dioxide 24.0 (21.0-31.0) mmol/L Anion Gap 10.6 BUN 10 (7-18) mg/dL Creatinine 0.8 (0.6-1.3) mg/dL Est Cr Clr Drug Dosing 149.03 mL/min Estimated GFR (MDRD) > 60 Glucose 153 H (74-105) mg/dL Calcium 8.1 L (8.4-10.2) mg/dl [place] Results - Last 24 hrs: Microbiology 09/01/19 03:20 Gram Stain - Final Sputum - Expectorated Sputum Culture - Final Staphylococcus Aureus 08/31/19 15:08 Aerobic Blood Culture - Preliminary Blood - Venous - Lab Draw NO GROWTH AFTER 3 DAYS Anaerobic Blood Culture - Preliminary NO GROWTH AFTER 3 DAYS 08/31/19 15:00 Aerobic Blood Culture - Preliminary Blood - Venous NO GROWTH AFTER 3 DAYS Anaerobic Blood Culture - Final Med Orders - Current: Current Medications Acetaminophen (Tylenol) 650 mg PO Q4H PRN PRN Reason: Pain (Mild 1-3)/fever Albuterol (Proventil Neb Soln) 2.5 mg NEB Q2H PRN PRN Reason: shortness of breath/wheezing Albuterol/Ipratropium (Duoneb 3.0-0.5 Mg/3 Ml) 3 ml NEB QIDRT [facility] Last Admin: 09/04/19 07:09 Dose: 3 ml Enoxaparin Sodium (Lovenox) 40 mg SUBCUT DAILY [facility] Last Admin: 09/04/19 09:24 Dose: Not Given Ceftriaxone Sodium 2 gm/ (Sodium Chloride) 100 mls @ 200 mls/hr IV Q24H [facility] Last Infusion: 09/03/19 15:28 Dose: Infused Azithromycin 500 mg/ Sodium (Chloride) 250 mls @ 250 mls/hr IV Q24H [facility] Last Infusion: 09/03/19 16:29 Dose: Infused Nicotine (Habitrol) 21 mg TRDERM DAILY [facility] Last Admin: 09/04/19 09:24 Dose: 21 mg Ondansetron HCl (Zofran) 4 mg IVPUSH Q6H PRN PRN Reason: Nausea/Vomiting Prednisone (Prednisone) 40 mg PO WITHBREAKFAST [facility] Last Admin: 09/04/19 09:24 Dose: 40 mg Sodium Chloride (Saline Flush) 10 ml FLUSH ASDIRECTED PRN PRN Reason: Keep Vein Open Last Admin: 09/03/19 14:53 Dose: 10 ml Discontinued Medications Acetaminophen (Tylenol) 650 mg PO Q4H PRN PRN Reason: Pain (Mild 1-3)/fever Albuterol (Proventil Neb Soln) 2.5 mg NEB ONETIME ONE Stop: 08/31/19 15:19 Last Admin: 08/31/19 15:23 Dose: 2.5 mg Albuterol (Proventil Neb Soln) Confirm Administered Dose 2.5 mg .ROUTE .STK-MED ONE Stop: 08/31/19 15:20 Last Admin: 08/31/19 15:24 Dose: 2.5 mg Albuterol (Proventil Neb Soln) 2.5 mg NEB Q2H PRN PRN Reason: shortness of breath/wheezing Albuterol/Ipratropium (Duoneb 3.0-0.5 Mg/3 Ml) 3 ml NEB ONETIME ONE Stop: 08/31/19 14:51 Last Admin: 08/31/19 15:12 Dose: 3 ml Albuterol/Ipratropium (Duoneb 3.0-0.5 Mg/3 Ml) Confirm Administered Dose 3 ml .ROUTE .STK-MED ONE Stop: 08/31/19 14:53 Last Admin: 08/31/19 15:10 Dose: Not Given Albuterol/Ipratropium (Duoneb 3.0-0.5 Mg/3 Ml) 3 ml NEB ONETIME ONE Stop: 08/31/19 17:02 Last Admin: 08/31/19 17:14 Dose: 3 ml Albuterol/Ipratropium (Duoneb 3.0-0.5 Mg/3 Ml) 3 ml NEB Q4H [facility] Last Admin: 08/31/19 18:33 Dose: Not Given Albuterol/Ipratropium (Duoneb 3.0-0.5 Mg/3 Ml) 3 ml NEB Q4HRRT [facility] Last Admin: 09/02/19 07:21 Dose: 3 ml Enoxaparin Sodium (Lovenox) 40 mg SUBCUT DAILY [facility] Azithromycin 500 mg/ Sodium (Chloride) 250 mls @ 250 mls/hr IV ONETIME ONE Stop: 08/31/19 16:43 Last Admin: 08/31/19 16:32 Dose: 250 mls/hr Ceftriaxone Sodium 2,000 mg/ (Sodium Chloride) 100 mls @ 200 mls/hr IV ONETIME ONE Stop: 08/31/19 16:12 Last Admin: 08/31/19 16:02 Dose: 200 mls/hr Sodium Chloride (Normal Saline) 1,000 mls @ 125 mls/hr IV ASDIRECTED [facility] Ceftriaxone Sodium 2 gm/ (Sodium Chloride) 100 mls @ 200 mls/hr IV Q24H [facility] Last Admin: 08/31/19 18:33 Dose: Not Given Azithromycin 500 mg/ Sodium (Chloride) 250 mls @ 250 mls/hr IV Q24H [facility] Sodium Chloride (Normal Saline) 1,000 mls @ 75 mls/hr IV ASDIRECTED [facility] Last Infusion: 09/02/19 09:19 Dose: Infused Influenza Virus Vaccine (Pharmacy To Dose - Influenza Vaccine) 1 each IM ONETIME ONE Stop: 09/05/19 02:23 Influenza Virus Vaccine (Afluria Quad 2018- (3yr Up)) 60 mcg IM .ONCE ONE Stop: 09/04/19 02:46 Methylprednisolone Sodium Succinate (Solu-Medrol) 125 mg IVPUSH ONETIME ONE Stop: 08/31/19 14:51 Last Admin: 08/31/19 15:05 Dose: 125 mg Methylprednisolone Sodium Succinate (Solu-Medrol) 40 mg IVPUSH Q8HR [facility] Last Admin: 09/02/19 05:52 Dose: 40 mg Ondansetron HCl (Zofran) 4 mg IVPUSH Q6H PRN PRN Reason: Nausea/Vomiting Prednisone (Prednisone) 40 mg PO WITHBREAKFAST [facility] - Exam Quality Assessment: Denies: Supplemental Oxygen General: Reports: Alert, Oriented Neck: Reports: Supple Lungs: Reports: Clear to Auscultation, Normal Respiratory Effort GI/Abdominal Exam: Normal Bowel Sounds, Soft, Non-Tender Extremities: No Pedal Edema Skin: Reports: Warm, Dry, Intact
== END 2019-09-04 11:04 | disposition home or self-care (01) | DRG 871 ==
LOC: DL.ED 14:09 → DL.MS 17:42 → DL.ED 17:52
PROVIDERS: ADMIT Hospitalist; ATTEND Hospitalist
DX: A41.9 Sepsis, unspecified organism (principal); J18.1 Lobar pneumonia, unspecified organism; J96.01 Acute respiratory failure with hypoxia; F17.210 Nicotine dependence, cigarettes, uncomplicated; J98.01 Acute bronchospasm; Z23 Encounter for immunization
CPT/HCPCS: 36415; 36600; 71046; 80048; 80053; 80076; 80305-QW; 81003; 82803; 83605; 85025; 85027; 85379; 87040; 87070; 87077; 87186; 87205; 87804; 90686; 94010; 94640; A9270-GY; J0456; J0696; J1650; J2920; J2930; J7030; J7050; J7613-GY; J7620-GY

== ENCOUNTER 2022-07-30 01:07 | Emergency (ER) | payer MEDICAID ==
[2022-07-30 01:49] VITALS: BP 128/90; PULSE 109
== END 2022-07-30 02:10 | disposition home or self-care (01) ==
LOC: DL.ED 01:07
DX: K60.0 Acute anal fissure (principal); F17.210 Nicotine dependence, cigarettes, uncomplicated; E66.9 Obesity, unspecified; Z68.39 Body mass index [BMI] 39.0-39.9, adult
CPT/HCPCS: 99283

== ENCOUNTER 2023-07-15 14:49 | Emergency (ER) | payer SELFPAY ==
[2023-07-15] MEDS ORDERED: predniSONE 20 MG Tab PO ONE (14:58)
[2023-07-15] MEDS ORDERED: Albuterol/Ipratropium 3.0-0.5 MG/3 ML Neb Soln NEB ONE (15:18)
[2023-07-15 15:21] VITALS: BP 142/92; PULSE 88
[2023-07-15 15:52] LABS: INFLUENZA A NAA NEGATIVE (NEGATIVE); INFLUENZA B NAA NEGATIVE (NEGATIVE); RESPIRATORY SYNCYTIAL VIR NAA NEGATIVE (NEGATIVE)
[2023-07-15 15:55] LABS: CORONAVIRUS COVID-19 NAA POSITIVE (NEGATIVE)
[2023-07-15] MEDS ORDERED: Take Home: predniSONE 20 MG, 4 Tab Pack PO ONE (16:17)
[2023-07-15] MEDS ORDERED: Albuterol 6.7 GM Inhaler INH ONE (16:18)
== END 2023-07-15 16:35 | disposition home or self-care (01) ==
LOC: DL.ED 14:49
DX: U07.1 COVID-19 (principal); E66.9 Obesity, unspecified; Z68.38 Body mass index [BMI] 38.0-38.9, adult
CPT/HCPCS: 0241U; 71046; 94640; 99283; 99285; A9270-GY; J7512; J7620-GY

== ENCOUNTER 2023-08-19 20:58 | Emergency (ER) | payer MEDICAID ==
[2023-08-19 22:07] LABS: CORONAVIRUS COVID-19 NAA NEGATIVE (NEGATIVE); INFLUENZA A NAA POSITIVE (NEGATIVE); INFLUENZA B NAA NEGATIVE (NEGATIVE); RESPIRATORY SYNCYTIAL VIR NAA NEGATIVE (NEGATIVE)
[2023-08-19] MEDS ORDERED: methylPREDNISolone Sodium Succinate 125 MG/2 ML SDV IVPUSH ONE (22:35)
[2023-08-19] MEDS ORDERED: Albuterol/Ipratropium 3.0-0.5 MG/3 ML Neb Soln NEB ONE (22:35)
[2023-08-19] MEDS ORDERED: Sodium Chloride 0.9% 1,000 ML IV ONE (22:35)
[2023-08-19] MEDS ORDERED: Sodium Chloride 0.9% 10 ML Syringe FLUSH PRN (22:36)
[2023-08-19] MEDS ORDERED: Acetaminophen 500 MG Tab PO ONE (23:09)
[2023-08-19] MEDS ORDERED: Oseltamivir 75 MG Cap PO ONE (23:46)
[2023-08-19] MEDS ORDERED: guaiFENesin/Dextromethorphan 100-10 MG/5 ML Soln 5 ML Cup PO ONE (23:46)
[2023-08-19] MEDS ORDERED: Take Home: Oseltamivir 75 MG Cap, 2 Cap Pack PO ONE (23:47)
[2023-08-20] MEDS ORDERED: Albuterol/Ipratropium 3.0-0.5 MG/3 ML Neb Soln NEB ONE (00:13)
[2023-08-20] MEDS ORDERED: Azithromycin 500 MG in Sodium Chloride 0.9% 250 ML IV ONE (00:28)
[2023-08-20] MEDS ORDERED: cefTRIAXone 1 GM Vial IVPUSH ONE (00:28)
[2023-08-20 00:36] LABS: BASOPHILS PERCENT AUTO 0.1 % (0.0-1.0); EOSINOPHILS PERCENT AUTO 0.1 % (1.0-3.0); HEMATOCRIT 49.9 % (40.0-54.0); HEMOGLOBIN 17.1 g/dL (14.0-18.0); LYMPHOCYTES PERCENT AUTO 7.1 % (20.5-50.1); MEAN CORPUSCULAR HGB CONC 34.3 g/dL (33.0-35.0); MEAN CORPUSCULAR VOLUME 87.5 fL (80-100); MONOCYTES PERCENT AUTO 9.6 % (2-8); NEUTROPHILS PERCENT AUTO 83.1 % (42.2-75.2); PLATELET COUNT,PLT 187 10^3/uL (150-450); WHITE BLOOD CELL COUNT,WBC 8.4 10^3/uL (5.0-10.0)
[2023-08-20 00:52] LABS: A/G RATIO 0.9; ALBUMIN 3.8 g/dL (3.4-5.0); ANION GAP 14.6 mEq/L (7-13); BILIRUBIN TOTAL 0.6 mg/dL (0.2-1.0); BUN/CREATININE RATIO 8.1 (No establ ref range); C-REACTIVE PROTEIN 8.64 ng/dL (<=0.50); CALCIUM 8.3 mg/dL (8.5-10.1); CREATININE 1.11 mg/dL (0.70-1.30); EST CRCL DRUG DOSING (CG) 103.64 mL/min; MAGNESIUM 1.6 mg/dL (1.8-2.4); POTASSIUM,K 3.6 mmol/L (3.5-5.1); PROTEIN TOTAL,TP 7.8 g/dL (6.4-8.2)
[2023-08-20 00:58] LABS: LACTIC ACID 1.2 mmol/L (0.4-2.0)
[2023-08-20 01:00] VITALS: BP 131/79
[2023-08-20 02:14] VITALS: PULSE 96
[2023-08-20] MEDS ORDERED: Take Home: Amoxicillin/Clavulanate K 875-125 MG Tab, 6 Tab Pack PO ONE (02:39)
[2023-08-20] MEDS ORDERED: Take Home: Azithromycin 250 MG, 2 Tab Pack PO ONE (02:39)
[2023-08-20] MEDS ORDERED: Take Home: predniSONE 20 MG, 4 Tab Pack PO ONE (02:39)
[2023-08-20] MEDS ORDERED: Albuterol 6.7 GM Inhaler INH ONE (02:39)
== END 2023-08-20 03:22 | disposition home or self-care (01) ==
LOC: DL.ED 20:58
DX: J10.00 Influenza due to other identified influenza virus with unspecified type of pneumonia (principal); R09.02 Hypoxemia; F17.210 Nicotine dependence, cigarettes, uncomplicated; F17.290 Nicotine dependence, other tobacco product, uncomplicated; Z20.822 Contact with and (suspected) exposure to COVID-19; Z86.16 Personal history of COVID-19
CPT/HCPCS: 0241U; 36415; 71045; 80053; 83605; 83735; 83880; 84145; 85025; 86140; 87040; 94640; 96361; 96365; 96375; 99285; A9270; J0456; J0696; J2930; J7030; J7050; J3490; J7620-GY